=== PATIENT | male | born 1955 | race Caucasian/White ===

== ENCOUNTER 2017-07-10 01:55 | Inpatient (IN) | payer OTHER ==
--- NOTE | 2017-07-10 02:14 | ED PDOC ---
Arrival/HPI - General Chief Complaint: Medical Clearance Time Seen by Provider: 07/10/17 01:57 Historian: Patient - History of Present Illness Narrative History of Present Illness (Text): 07/10/17 02:00 A 62 year old male was brought in by EMS to the emergency department complaining of left sided weakness s/p seizure episode 4.5 hours prior to arrival to the emergency department. Patient reports 4.5 hours ago was the last time he was normal. Reports he was sitting at home and when he tried to get up, realized he was unable to walk because weakness of left leg. Denies any other complaints at this time. Time/Duration: 4-6 hours Symptom Onset: Sudden Symptom Course: Unchanged Activities at Onset: Light Context: Home Past Medical History - Provider Review Nursing Documentation Reviewed: Yes - Psychiatric Hx Substance Use: No Family/Social History - Physician Review Nursing Documentation Reviewed: Yes Family/Social History: No Known Family HX Smoking Status: Never Smoked Hx Alcohol Use: No Hx Substance Use: No Allergies/Home Meds Allergies/Adverse Reactions: Allergies No Known Allergies Allergy (Verified 07/10/17 02:00) Home Medications: Home Meds Medication Instructions Recorded Confirmed Metformin ER [Glucophage XR] 500 mg PO DAILY 07/10/17 07/10/17 Sildenafil [Revatio] 20 mg PO DAILY 07/10/17 07/10/17 Simvastatin [Zocor] 20 mg PO DAILY 07/10/17 07/10/17 Review of Systems - Physician Review All systems were reviewed & negative as marked: Yes - Review of Systems Respiratory: absent: SOB Musculoskeletal: absent: Back Pain Neurological: Seizure, Other (left sided weakness) Physical Exam Vital Signs Reviewed: Yes Vital Signs Temp Pulse Resp BP Pulse Ox 07/10/17 03:07 100 H 18 110/80 95 07/10/17 02:00 105 H 20 137/76 97 07/10/17 01:55 97.8 F Blood Pressure: Normal Pulse: Tachycardic Respiratory Rate: Normal Appearance: Positive for: Well-Appearing Pain Distress: None Mental Status: Positive for: Alert and Oriented X 3 Finger Stick Blood Glucose: 95 - Systems Exam Head: Present: Atraumatic, Normocephalic Pupils: Present: PERRL Extroacular Muscles: Present: EOMI Conjunctiva: Present: Normal Mouth: Present: Moist Mucous Membranes Neck: Present: Normal Range of Motion Respiratory/Chest: Present: Clear to Auscultation, Good Air Exchange. No: Respiratory Distress, Accessory Muscle Use Cardiovascular: Present: Regular Rate and Rhythm, Normal S1, S2. No: Murmurs Abdomen: Present: Normal Bowel Sounds. No: Tenderness, Distention, Peritoneal Signs Back: Present: Normal Inspection Upper Extremity: Present: Other (left sided 0/5 motor, 5/5 right side). No: Cyanosis, Edema Lower Extremity: Present: Other (left sided 0/5 motor; 5/5 right side). No: Edema Neurological: Present: GCS=15, CN II-XII Intact, Speech Normal, Other (twitching , tremors b/l) Skin: Present: Warm, Dry, Normal Color. No: Rashes Psychiatric: Present: Alert, Oriented x 3, Normal Concentration Medical Decision Making ED Course and Treatment: 07/10/17 02:00 Impression: A 62 year old male with seizure episode and left sided weakness. Plan: -- EKG -- chest xray -- CT head -- labs -- Ativan -- Reassess and disposition Progress Notes: 07/10/17 02:02 Code stroke called. 07/10/17 02:22 Patient had seizure prior to CAT scan. Ativan was given. CT Head Without Intravenous Contrast FINDINGS: LIMITATIONS: Mild streak/motion artifact. BRAIN: Large area of abnormal low density in the right occipital and parietal lobes, with an appearance suspicious for vasogenic edema, secondary to an underlying intracranial mass lesion. The lesion itself is possibly seen, image 33 of series 2, in the right occipital lobe, measuring about 1.6 cm. There is associated intracranial mass effect. There is shift of the midline to the left of 4 mm, as well as effacement of the right lateral ventricle. No other significant abnormality identified. Mild, diffuse each-related cortical atrophy and ventriculomegaly No acute hemorrhage seen within the brain. No acute extra- axial fluid collections visualized. VENTRICLES: No evidence of significant hydrocephalus. BONES/JOINTS: No acute fractures or other acute bony abnormality noted. SOFT TISSUES: No acute abnormality of the visualized soft tissues is seen. SINUSES: Visualized paranasal sinuses appear clear. MASTOID AIR CELLS: Mastoid air cells appear clear. NASOPHARYNX: Nasopharyngeal airway is in place. IMPRESSION: - Large area of edema in the right occipital and parietal lobes, suspicious for vasogenic edema secondary to a right occipital mass. There is associated intracranial mass effect, including 4 mm midline shift to the left. Recommend further evaluation with contrast- enhanced MRI of the brain. - See above for remaining findings. Dictated and Authenticated by: Kate Bowens MD 07/10/2017 2:35 AM Eastern Time ([place] & [place]) 07/10/17 02:49 EKG: Ordered, reviewed, and independently interpreted the EKG. Rate : 119 BPM Rhythm : sinus tachycardia Interpretation : QRS normal, flat T wave lead 3 avf Comparison : No previous EKG for comparison. 07/10/17 02:49 Chest xray: No acute process, interpreted by me. 07/10/17 03:[address] Cazares, who agrees with plan for patient to be admitted. 07/10/17 03:15 Patient has brain tumor on CAT scan. Patient not a candidate for tpa. - Lab Interpretations Lab Results: 07/10/17 02:00 07/10/17 02:00 Lab Results 07/10/17 02:20: Blood Type Pending, Antibody Screen Pending, BBK History Checked No verified bt 07/10/17 02:00: Urine Opiates Screen Negative, Urine Methadone Screen Negative, Ur Barbiturates Screen Negative, Ur Phencyclidine Scrn Negative, Ur Amphetamines Screen Negative, U Benzodiazepines Scrn Negative, U Oth Cocaine Metabols Negative, U Cannabinoids Screen Negative 07/10/17 02:00: Sodium 141, Potassium 3.7, Chloride 106, Carbon Dioxide 26, Anion Gap 13, BUN 11, Creatinine 1.1, Est GFR ( Amer) > 60, Est GFR (Non- Af Amer) > 60, Random Glucose 116 H, Calcium 9.2, Total Bilirubin 0.6, AST 41, ALT 41, Alkaline Phosphatase 87, Troponin I < 0.01, Total Protein 7.6, Albumin 4.4, Globulin 3.2, Albumin/Globulin Ratio 1.4, Triglycerides 186 H, Cholesterol 166, LDL Cholesterol Direct 107, HDL Cholesterol 45 07/10/17 02:00: PT 11.0, INR 1.01, APTT 28.5 07/10/17 02:00: WBC 9.6, RBC 4.99, Hgb 15.3, Hct 43.6, MCV 87.4, MCH 30.7, MCHC 35.1, RDW 13.7, Plt Count 234, MPV 10.2, Gran % 43.0 L, Lymph % (Auto) 46.8 H, Vernon % (Auto) 8.3 H, Eos % (Auto) 1.4 L, Baso % (Auto) 0.5, Gran # 4.14, Lymph # 4.5 H, Vernon # 0.8 H, Eos # 0.1, Baso # 0.05 I have reviewed the lab results: Yes - RAD Interpretation Radiology Orders: 07/10/17 02:00 HEAD W/O (CODE STROKE) [CT] Stat CHEST PORTABLE [RAD] Stat - EKG Interpretation Interpreted by ED Physician: Yes Type: 12 lead EKG - Medication Orders Current Medication Orders: Discontinued Medications Dexamethasone (Decadron Inj) 10 mg IVP STAT STA Stop: 07/10/17 03:08 Levetiracetam 1,000 mg/ Sodium (Chloride) 110 mls @ 440 mls/hr IV ONCE ONE Stop: 07/10/17 02:45 Last Admin: 07/10/17 02:57 Dose: 440 mls/hr eMAR Start Stop Document 07/10/17 02:57 IT (Rec: 07/10/17 02:57 IT [id number]) Intravenous Solution Start Date 07/10/17 Start Time 02:57 Lorazepam (Ativan) 1 mg IVP ONCE ONE PRN Reason: Protocol Stop: 07/10/17 02:02 Last Admin: 07/10/17 02:05 Dose: 1 mg IVP Administration Document 07/10/17 02:05 IT (Rec: 07/10/17 02:59 IT [id number]) Charges for Administration # of IVP Administrations 1 Lorazepam (Ativan) 1 mg IVP ONCE ONE PRN Reason: Protocol Stop: 07/10/17 02:40 Last Admin: 07/10/17 02:05 Dose: 1 mg IVP Administration Document 07/10/17 02:05 IT (Rec: 07/10/17 02:59 IT [id number]) Charges for Administration # of IVP Administrations 1 NIHSS Scale ([place]) Time Performed: 02:02 - How Severe is the Stoke Baseline Level of Consciousness: 1=Drowsy LOC to Questions: 0=Both comments correct LOC to commands: 0=Obeys both correctly Best Gaze: 0=Normal Visual: 0=No visual loss Facial: 0=Normal Motor Arm - Left: 4=No movement Motor Arm - Right: 0=No drift Motor Leg - Left: 4=No movement Motor Leg - Right: 0=No drift Limb Ataxia: 1=Present Upper or Lower Sensory: 0=Normal Best Language: 0=No aphasia Dysarthia: 0=Normal articulation Extinction & Inattention (Neglect): 0=Normal, no object Score: 10 Risk Level: Mod Stroke Risk rTPA Inclusion/Exclusion - Refusal of Treatment Patient Refused Treatment: No - Inclusion Criteria for Altepase Patient is 18 years or Older: Yes The Clinical Diagnosis of Ischemic Stroke That is Causing a Potentially Disabling Neurological Deficit: No Time of Onset is Well Established to be Less Than 270 Minute Before Treatment Would Begin: No Risk/Benefit Discussed With Patient/Family Member Present: No - Exclusion Criteria for Altepase Uncontrolled Hypertension at Time of Treatment (Systolic BP above 185 or Diastolic BP above 110 mmHg): No History of: Brain Tumor Active Internal Bleeding: No Known Bleeding Diathesis Including but Not Limited to: Platelets Below 100,000/ mm,PTT Above 40 sec After Heparin Use, Current Use of Oral Anitcoagulant With INR Greater Than 1.7 or PT Greater Than 15 secs: No Evidence of an Intracranial Hemorrhage: No Evidence of Major Acute Infarct With Signs Greater Than 1/3 MCA Territory: No Suspicion of Subarachnoid Hemorrhage on Pretreatment Evaluation Even if CT Head Negative For Hemorrhage: No - Warning to TPA With Conditions Following Conditions Weighed Against Anticipated Benefit: No - Scribe Statement The provider has reviewed the documentation as recorded by the Chao Sorto Provider Scribe Attestation: All medical record entries made by the Bhanuibshanelle were at my direction and personally dictated by me. I have reviewed the chart and agree that the record accurately reflects my personal performance of the history, physical exam, medical decision making, and the department course for this patient. I have also personally directed, reviewed, and agree with the discharge instructions and disposition. Disposition/Present on Arrival - Present on Arrival Any Indicators Present on Arrival: No History of DVT/PE: No History of Uncontrolled Diabetes: No Urinary Catheter: No History of Decub. Ulcer: No History Surgical Site Infection Following: None - Disposition Have Diagnosis and Disposition been Completed?: Yes Diagnosis: Mass, brain, Seizure Disposition: HOSPITALIZED Disposition Time: 03:15 Patient Plan: Admission, ICU Condition: CRITICAL
[2017-07-10 02:19] LABS: BASO # 0.05 K/mm3 (0.0-2.0); BASO % 0.5 % (0.0-3.0); EOS # 0.1 (0.0-0.7); EOS % 1.4 % (1.5-5.0); GRAN # 4.14 (1.4-6.5); HEMATOCRIT 43.6 % (42.0-52.0); LYMPH # 4.5 (1.2-3.4); LYMPH % 46.8 % (22.0-35.0); MEAN CELL VOLUME 87.4 fl (80.0-105.0); MEAN CORPUSCULAR HEMOGLOBIN 30.7 pg (25.0-35.0); MEAN CORPUSCULAR HGB CONC 35.1 g/dl (31.0-37.0); MEAN PLATELET VOLUME 10.2 fl (7.0-11.0); MONO # 0.8 (0.1-0.6); MONO % 8.3 % (1.0-6.0); RED CELL DISTRIBUTION WIDTH 13.7 % (11.5-14.5); WHITE BLOOD COUNT 9.6 10^3/ul (4.5-11.0)
[2017-07-10 02:24] LABS: INR 1.01 (0.93-1.08); PARTIAL THROMBOPLASTIN TIME 28.5 Seconds (25.1-36.5)
[2017-07-10 02:29] LABS: ALB/GLOB RATIO 1.4 (1.1-1.8); ALKALINE PHOSPHATASE 87 U/L (38-126); ALT/SGPT 41 U/L (7-56); AST/SGOT 41 U/L (17-59); BILIRUBIN,TOTAL 0.6 mg/dL (0.2-1.3); BLOOD UREA NITROGEN 11 mg/dL (7-21); CALCIUM 9.2 mg/dL (8.4-10.5); CARBON DIOXIDE 26 mmol/L (21-33); CHLORIDE 106 mmol/L (98-107); CHOLESTEROL 166 mg/dL (130-200); GFR AFRICAN-AMERICAN > 60; GLUCOSE,RANDOM 116 mg/dL (70-110); POTASSIUM 3.7 mmol/L (3.6-5.0); SODIUM 141 mmol/L (132-148); TOTAL PROTEIN 7.6 g/dL (5.8-8.3)
[2017-07-10] MEDS ORDERED: levETIRAcetam 1,000 MG in Sodium Chloride 0.9% 100 ML IV ONE (02:31)
--- NOTE | 2017-07-10 02:35 | CT ---
EXAM: CT Head Without Intravenous Contrast EXAM DATE/TIME: 07/10/2017 2:00 AM CLINICAL HISTORY: 62 years old, male; Signs and symptoms; Weakness, facial; Additional info: Code stroke TECHNIQUE: Axial computed tomography images of the head/brain without intravenous contrast. All CT scans at this facility use one or more dose reduction techniques, viz.: automated exposure control; ma/kV adjustment per patient size (including targeted exams where dose is matched to indication; i.e. head); or iterative reconstruction technique. COMPARISON: No relevant prior studies available. FINDINGS: LIMITATIONS: Mild streak/motion artifact. BRAIN: Large area of abnormal low density in the right occipital and parietal lobes, with an appearance suspicious for vasogenic edema, secondary to an underlying intracranial mass lesion. The lesion itself is possibly seen, image 33 of series 2, in the right occipital lobe, measuring about 1.6 cm. There is associated intracranial mass effect. There is shift of the midline to the left of 4 mm, as well as effacement of the right lateral ventricle. No other significant abnormality identified. Mild, diffuse each-related cortical atrophy and ventriculomegaly No acute hemorrhage seen within the brain. No acute extra-axial fluid collections visualized. VENTRICLES: No evidence of significant hydrocephalus. BONES/JOINTS: No acute fractures or other acute bony abnormality noted. SOFT TISSUES: No acute abnormality of the visualized soft tissues is seen. SINUSES: Visualized paranasal sinuses appear clear. MASTOID AIR CELLS: Mastoid air cells appear clear. NASOPHARYNX: Nasopharyngeal airway is in place. IMPRESSION: - Large area of edema in the right occipital and parietal lobes, suspicious for vasogenic edema secondary to a right occipital mass. There is associated intracranial mass effect, including 4 mm midline shift to the left. Recommend further evaluation with contrast-enhanced MRI of the brain. - See above for remaining findings.
[2017-07-10 02:44] LABS: TROPONIN I < 0.01 ng/mL
[2017-07-10 03:25] LABS: PH,URINE 5.5 (4.7-8.0); URINE BILIRUBIN NEGATIVE (NEGATIVE); URINE BLOOD TRACE-INTACT (NEGATIVE); URINE GLUCOSE (UA) NEGATIVE (NEGATIVE); URINE KETONE NEGATIVE (NEGATIVE); URINE LEUKOCYTE ESTERASE NEGATIVE Leu/uL (NEGATIVE); URINE PROTEIN 30 mg/dL (<30 mg/dL); URINE UROBILINOGEN 0.2 E.U./dL (<1 E.U./dL)
[2017-07-10 03:54] LABS: URINE APPEARANCE CLEAR (CLEAR); URINE COLOR YELLOW (YELLOW)
[2017-07-10 04:19] LABS: URINE EPITHELIAL CELLS 0 - 2 /hpf (0-5); URINE RBC 0 - 2 /hpf (0-2); URINE WBC 0 - 2 /hpf (0-6)
[2017-07-10] MEDS ORDERED: Sodium Chloride 0.9% 1,000 ML IV SCH (04:30)
--- NOTE | 2017-07-10 04:45 | CP.PCM.HP ---
<Tiffany Park - Last Filed: 07/10/17 04:27> History of Present Illness - History of Present Illness History of Present Illness: Tiffany Park DO PGY1 - Internal Medicine H&P and ICU Consult Note 62 yo M with PMH of high cholesterol presented to the ED brought by EMS, complaining of left sided weakness. During my encounter, patient was lethargic after receiving 2mg Ativan, so history was obtained from ER staff and son who was at bedside. Per ER staff, patient was at home, at 930PM tried to get out of his chair to go to the bathroom, and noticed left sided weakness and difficulty walking. He had a guest in his home at the time who called EMS to bring him to the hospital. Per the son, patient was normal without any complaints earlier this week, and generally leads a healthy lifestyle, exercising regularly and eating healthily. In the ER, patient was lucid, AAOx3, with left sided weakness and right sided twitching movements. Code stroke was called and patient was taken for CT head, and had a generalized tonic clonic seizure en route, which abated with 2mg IV ativan. ROS: Unobtainable due to patient's current mental status PMH: High cholesterol, erectile dysfunction PSH: None Soc: Denies tobacco, alcohol, or illicits Home meds: Simvastatin, Sildenafil, Metformin 500mg PO daily All: NKDA Present on Admission - Present on Admission Any Indicators Present on Admission: No Past Patient History - Past Social History Smoking Status: Never Smoked - PSYCHIATRIC Hx Substance Use: No - SURGICAL HISTORY Hx Surgeries: No Meds Allergies/Adverse Reactions: Allergies Allergy/AdvReac Type Severity Reaction Status Date / Time No Known Allergies Allergy Verified 07/10/17 02:00 Physical Exam - Constitutional Appears: Non-toxic, No Acute Distress, Confused - Head Exam Head Exam: ATRAUMATIC, NORMOCEPHALIC - Eye Exam Eye Exam: Normal appearance, PERRL Additional comments: Vertical gaze palsy. Right sided preferential gaze. - ENT Exam ENT Exam: Mucous Membranes Moist - Neck Exam Neck exam: Positive for: Normal Inspection - Respiratory Exam Respiratory Exam: Clear to Auscultation Bilateral, NORMAL BREATHING PATTERN - Cardiovascular Exam Cardiovascular Exam: Tachycardia, REGULAR RHYTHM, +S1, +S2. absent: JVD, Systolic Murmur Additional comments: No carotid bruits ascultated - GI/Abdominal Exam GI & Abdominal Exam: Normal Bowel Sounds, Soft. absent: Firm, Guarding, Rigid - Extremities Exam Extremities exam: Positive for: normal inspection. Negative for: pedal edema - Neurological Exam Additional comments: On initial presentation, patient was reportedly AAOx3 Currently, patient is lethargic, but easily arousable, oriented to person and place, and somewhat to situation, responding to verbal stimuli, obeying commands , opening eyes to verbal stimuli (GCS 13) PERRL, vertical gaze palsy, forehead sparing left sided facial droop, no tongue/ palate deviation or fasciculation 5/5 strength in RUE and RLE with upgoing plantar on the right 0/5 strength in LUE and LLE with equivocal plantar on the left; on repeat exam one hour later, patient was able to raise left arm and leg on command Sensation intact on the right, but totally diminished on the right - Psychiatric Exam Additional comments: Unable to assess - Skin Skin Exam: Dry, Intact, Normal Color Results - Vital Signs Recent Vital Signs: Last Vital Signs Temp 97.8 F 07/10/17 01:55 Pulse 100 H 07/10/17 03:07 Resp 18 07/10/17 03:07 BP 110/80 07/10/17 03:07 Pulse Ox 95 07/10/17 03:07 - Labs Result Diagrams: 07/10/17 02:00 07/10/17 02:00 Assessment & Plan - Assessment and Plan (Free Text) Assessment: 62 yo M with PMH of high cholesterol presents by EMS for sudden onset left sided weakness Plan Neuro: - Patient with profound left sided weakness and forehead sparing left sided facial droop - CT head significant for large area of edema in right parietal and occipital lobe 2/2 vasogenic edema 2/2 right occipital mass with mass effect and 4mm midline shift to the left - Patient received Decadron 10mg IV, Keppra 1000mg IV, and Ativan 2mg IV in the ER - Ordered MRI brain and MRA neck to r/o thromboembolic event and further delineate brain mass - Continue Decadron 4mg IV Q6 - Continue Keppra 500mg IV Q12 - Continue Ativan 2mg Q2H PRN for seizures - Start Zofran 4mg IV Q6H for nausea - Neurochecks Q2 and maintain seizure and fall precautions - Maintain NPO - Ordered swallow eval and treat - Maintain HOB >30 - Consult neurology and neurosurgery, appreciate recs Cardio: - Patient was tachycardic in the ER, remains borderline tachycardic - Start IVF NS@100cc/hr - Vital signs otherwise stable; continue to monitor Pulm: - Lungs CTA on exam - Saturating well on RA - Maintain SaO2 >90% GI: - Maintain NPO in setting of facial palsy - Ordered swallow eval and treat - Protonix for GI Ppx - Zofran for nausea Renal: - Monitor and replete lytes as needed - Maintain euvolemia Endo: - Patient takes Metformin 500mg PO daily, though son does not endorse history of diabetes - Maintain euglycemia ID: - Patient is afebrile, no leukocytosis - Maintain normothermia Hem/Onc: - H/H stable - No signs of active bleeding - Continue to monitor GI/DVT Ppx - Protonix and SCDs Patient seen, discussed, and reviewed with attending <Ronald Cazares - Last Filed: 07/10/17 06:12> Results - Vital Signs Recent Vital Signs: Last Vital Signs Temp 97.8 F 07/10/17 01:55 Pulse 87 07/10/17 04:50 Resp 20 07/10/17 04:40 BP 136/83 07/10/17 04:20 Pulse Ox 97 07/10/17 04:50 - Labs Result Diagrams: 07/10/17 02:00 07/10/17 02:00 Attending/Attestation - Attestation I have personally seen and examined this patient.: Yes I have fully participated in the care of the patient.: Yes I have reviewed all pertinent clinical information: Yes Notes (Text): 07/10/17 06:09 I agree with the above mentioned note and exam by the resident with the addition /exception of the followin62 y/o male with dyslipidemia, ?prediabetes was brought to the ED for flaccid left sided weakness today. Patient was called for a code stroke due to the acuity of the symptoms and while at CT Scan had an episode of generalized tonic clonic shaking. CT Head showing vasogenic right parietal/occipital edema, likely secondary to a mass which would also explain the patient having a new onset seizure. Patient also has a mild midline shift of 4mm; able to maintain and protect his airway adequately. Will obtain MRI of the head to further clarify the edema/mass. NeuroSx consulted without any new recommendations at this time, will follow up with neurology as well. Decadron initiated for vasogenic edema secondary to the brain mass. Case discussed with Dr. Lugo (ED Physician) at length labs and images reviewed total time of care: 45 minutes
[2017-07-10] MEDS: Dexamethasone 4 mg/1 ml IVP SCH ×4 (04:52→22:32)
[2017-07-10 07:01] VITALS: BMI 31.7
[2017-07-10] MEDS ORDERED: Sodium Chloride 3% 500 ML IV SCH (07:15)
--- NOTE | 2017-07-10 08:19 | RAD ---
HISTORY: weakness COMPARISON: No prior. FINDINGS: LUNGS: No active pulmonary disease. Shallow lung volumes noted PLEURA: No significant pleural effusion identified, no pneumothorax apparent. CARDIOVASCULAR: Normal. OSSEOUS STRUCTURES: Acromioclavicular sclerotic and hypertrophic arthrosis VISUALIZED UPPER ABDOMEN: Normal. OTHER FINDINGS: None. IMPRESSION: No active cardiopulmonary disease. Bilateral acromioclavicular arthrosis
[2017-07-10] MEDS: levETIRAcetam 500mg IVPB 500 MG/100 ML BAG IVPB SCH ×2 (09:38→22:29)
--- NOTE | 2017-07-10 10:13 | CP.PCM.CON ---
<Adan Hernandez - Last Filed: 07/10/17 10:07> History of Present Illness - History of Present Illness History of Present Illness: Critical care consult note - Carlin Hernandez PGY2 HPI: Patient is a 62 year-old male with past medical history of dyslipidemia that presented c/o sudden onset left-sided weakness. At approximately 9:30pm last night, patient was at home when he noticed the weakness and had difficulty walking. A friend called EMS and he was brought to [facility] where a code stroke was called. On the way to CT, the patient reportedly had a tonic- clonic seizure for which he was given 2mg of Ativan. CT Head revealed large vasogenic edema in the right parietal and occipital lobes with 4mm of midline shift to the left secondary to a right occipital lobe mass. He was subsequently given 10mg of decadron and 1g of keppra. Neurosurgery was consulted in the ED and no surgical intervention was recommended at that time. He was subsequently admitted to the ICU for further medical management. He denied numbness, tingling , chest pain, palpitations, SOB, abdominal pain, nausea, vomiting, fever, chills , cough. 12point ROS as per HPI above otherwise negative PMHx: dyslipidemia, erectile dysfunction, pre-diabetes PSHx: Denies Allergies: NKDA Soc: Denies tobacco, alcohol, or illicits Home medications include: Simvastatin, Sildenafil, Metformin 500mg PO daily Past Patient History - Past Social History Smoking Status: Never Smoked - MUSCULOSKELETAL/RHEUMATOLOGICAL Hx Falls: No - PSYCHIATRIC Hx Substance Use: No - SURGICAL HISTORY Hx Surgeries: No Meds Allergies/Adverse Reactions: Allergies Allergy/AdvReac Type Severity Reaction Status Date / Time No Known Allergies Allergy Verified 07/10/17 11:44 - Medications Medications: Current Medications Dexamethasone (Decadron Inj) 4 mg IVP Q6H [facility] Last Admin: 07/10/17 04:52 Dose: Not Given Heparin Sodium (Porcine) (Heparin) 5,000 units SC Q12 [facility] PRN Reason: Protocol Levetiracetam (Keppra 500mg Ivpb) 500 mg in 100 mls @ 460 mls/hr IVPB Q12 [facility] Last Admin: 07/10/17 09:38 Dose: 460 mls/hr Sodium Chloride (Hypertonic Saline 3%) 500 mls @ 20 mls/hr IV .Q24H [facility] Acetaminophen (Ofirmev) 1,000 mg in 100 mls @ 400 mls/hr IVPB Q6H PRN PRN Reason: Headache Stop: 07/12/17 07:31 Last Admin: 07/10/17 07:48 Dose: 400 mls/hr Insulin Human Regular (Humulin R Low) 0 units SC ACHS [facility] PRN Reason: Protocol Lorazepam (Ativan) 2 mg IVP Q2H PRN; Protocol PRN Reason: Seizure Ondansetron HCl (Zofran Inj) 4 mg IVP Q6H PRN PRN Reason: Nausea/Vomiting Pantoprazole Sodium (Protonix Inj) 40 mg IVP DAILY [facility] Last Admin: 07/10/17 09:37 Dose: 40 mg Physical Exam - Constitutional Appears: Non-toxic, No Acute Distress - Head Exam Head Exam: ATRAUMATIC, NORMAL INSPECTION, NORMOCEPHALIC - Eye Exam Eye Exam: EOMI, PERRL. absent: Conjunctival injection, Nystagmus, Periorbital swelling, Scleral icterus - ENT Exam ENT Exam: Mucous Membranes Moist - Neck Exam Neck exam: Positive for: Normal Inspection. Negative for: Lymphadenopathy, Tenderness, Thyromegaly - Respiratory Exam Respiratory Exam: Clear to Auscultation Bilateral. absent: Accessory Muscle Use , Rales, Rhonchi, Wheezes - Cardiovascular Exam Cardiovascular Exam: RRR, +S1, +S2. absent: Clicks, Gallop, JVD, Rubs - GI/Abdominal Exam GI & Abdominal Exam: Normal Bowel Sounds, Soft. absent: Distended, Guarding, Rebound, Rigid, Tenderness - Extremities Exam Extremities exam: Positive for: normal inspection. Negative for: calf tenderness, pedal edema - Neurological Exam Neurological exam: Alert, CN II-XII Intact, Oriented x3 Additional comments: awake, alert, oriented x3; responding to questions appropriately EOMI PERRL CN2-12 grossly intact sensory exam intact moves all extremities spontaneously with notable weakness in the left upper extremity visual impairment in the left eye gait deferred - Psychiatric Exam Psychiatric exam: Normal Affect, Normal Mood - Skin Skin Exam: Dry, Intact, Normal Color, Warm Results - Vital Signs Recent Vital Signs: Last Vital Signs Temp 98.3 F 07/10/17 04:56 Pulse 85 07/10/17 07:00 Resp 23 07/10/17 07:00 BP 117/62 07/10/17 06:32 Pulse Ox 98 07/10/17 06:50 - Labs Result Diagrams: 07/10/17 02:00 07/10/17 02:00 Labs: Laboratory Results - last 24 hr 07/10/17 07:30 TSH 3rd Generation 5.21 H Assessment & Plan - Assessment and Plan (Free Text) Plan: 62yo male with history of dyslipidemia presents with sudden onset left-sided weakness due to large vasogenic edema in the right occipital and parietal lobes secondary to a right occipital mass. Neuro: -CT reviewed; revealed large area of vasogenic edema in right parietal and occipital lobe 2/2 right occipital mass with 4mm of midline shift to the left -Patient received Decadron 10mg IV, Keppra 1000mg IV, and Ativan 2mg IV in the ER -MRI Brain and MRA Head/Neck is pending to further delineate brain mass -CT Chest/Abdomen/Pelvis with IV contrast has been ordered to evaluate for possible primary cancer -Continue Decadron 4mg IV Q6 -Continue Keppra 500mg IV Q12 -Continue hypertonic saline @ 20cc/hr -BMP q4h for monitoring hypertonic saline -Serum Osmolality -Continue Ativan 2mg Q2H PRN for seizures -Zofran 4mg IV Q6H PRN for nausea/vomiting -Neurochecks Q2h -Seizure and Fall precautions -Maintain HOB >30 -Speech/swallow evaluation pending; NPO at this time -Neurology consulted - Dr. Marroquin -Neurosurgery consulted - Dr. Richards Cardio: -Hemodynamic monitoring with goal MAP > 65 Pulm: -Maintain SaO2 >90%; presently saturating > 95% on room air GI: -Protonix for GI prophylaxis -NPO at the present time pending speech/swallow evaluation Renal: -Monitor and correct electrolyte abnormalities as indicated -Maintain euvolemia Endo: -Maintain euglycemia with blood glucose between 140-180 ID: -Afebrile, no leukocytosis -Maintain normothermia Heme: -No overt signs of bleeding; H/H stable -Heparin SC for DVT prophylaxis Patient seen and case discussed/reviewed with attending, Dr. Frankel <Felipe Frankel - Last Filed: 07/10/17 18:22> Meds - Medications Medications: Current Medications Dexamethasone (Decadron Inj) 4 mg IVP Q6H [facility] Last Admin: 07/10/17 17:12 Dose: 4 mg Heparin Sodium (Porcine) (Heparin) 5,000 units SC Q12 [facility] PRN Reason: Protocol Last Admin: 07/10/17 10:10 Dose: 5,000 units Levetiracetam (Keppra 500mg Ivpb) 500 mg in 100 mls @ 460 mls/hr IVPB Q12 [facility] Last Admin: 07/10/17 09:38 Dose: 460 mls/hr Sodium Chloride (Hypertonic Saline 3%) 500 mls @ 20 mls/hr IV .Q24H [facility] Last Admin: 07/10/17 15:14 Dose: 20 mls/hr Acetaminophen (Ofirmev) 1,000 mg in 100 mls @ 400 mls/hr IVPB Q6H PRN PRN Reason: Headache Stop: 07/12/17 07:31 Last Admin: 07/10/17 07:48 Dose: 400 mls/hr Insulin Human Regular (Humulin R Low) 0 units SC ACHS [facility] PRN Reason: Protocol Last Admin: 07/10/17 17:12 Dose: 1 units Lorazepam (Ativan) 2 mg IVP Q2H PRN; Protocol PRN Reason: Seizure Ondansetron HCl (Zofran Inj) 4 mg IVP Q6H PRN PRN Reason: Nausea/Vomiting Pantoprazole Sodium (Protonix Inj) 40 mg IVP DAILY [facility] Last Admin: 07/10/17 09:37 Dose: 40 mg Results - Vital Signs Recent Vital Signs: Last Vital Signs Temp 98.5 F 07/10/17 16:00 Pulse 70 07/10/17 16:50 Resp 21 07/10/17 16:50 BP 126/50 L 07/10/17 16:45 Pulse Ox 94 L 07/10/17 16:50 - Labs Result Diagrams: 07/10/17 02:00 07/10/17 02:00 Labs: Laboratory Results - last 24 hr 07/10/17 07/10/17 07/10/17 07:30 09:00 09:58 POC Glucose (mg/dL) 210 H Serum Osmolality 287 TSH 3rd Generation 5.21 H 07/10/17 07/10/17 11:52 16:32 POC Glucose (mg/dL) 173 H 152 H Serum Osmolality TSH 3rd Generation Attending/Attestation - Attestation I have personally seen and examined this patient.: Yes I have fully participated in the care of the patient.: Yes I have reviewed all pertinent clinical information: Yes Notes (Text): This is 62 yo male who presented with seizures, loss vision on a left eye and decrease motor strength on a left upper extremity. Subsequent workup revealed severe vasogenic edema with midline shift 4 mm and changes on MRI highly suspicious for glioblastoma based on my conversation with neurosurgery service. decadrone, hypertonic saline are started, bmp q4 hrs, maintaining euvolemia, euglycemia, normothermia and 02sat >90%. as per my conversation with Dr. Richards patient needs navigational surgery and Dr. Marroquin will attempt to transfer patient to tertiary center for consideration of thereof. Meanwhile, patient passed bedside swallow eval, hemodynamically and respiratory relatively stable. Ok to downgrade to stroke floor ccm time 40 min
[2017-07-10] MEDS ORDERED: Iohexol 350 MG/100 ML VIAL ONE (10:56)
[2017-07-10] MEDS ORDERED: Gadodiamide 287 MG/ML VIAL (15ML) IV ONE (11:00)
[2017-07-10] MEDS: Insulin Reg-LOW-Coverage SC SCH ×3 (12:00→22:32)
--- NOTE | 2017-07-10 13:14 | CT ---
PROCEDURE: CT Chest, Abdomen and Pelvis with intravenous contrast HISTORY: brain mass, ruling out other primary location COMPARISON: None. TECHNIQUE: IV dose administered: 100 cc of Omni 350 Radiation dose: Total exam DLP = 956 mGy-cm. This CT exam was performed using one or more of the following dose reduction techniques: Automated exposure control, adjustment of the mA and/or kV according to patient size, and/or use of iterative reconstruction technique. FINDINGS: CT CHEST WITH CONTRAST: LUNGS: There is linear scarring and atelectasis at the right lung base. The lungs are otherwise clear MEDIASTINUM: Unremarkable. Normal caliber aorta and pulmonary arterial trunk. No aortic dissection. Normal size heart. LYMPH NODES: Unremarkable. PLEURA: Unremarkable. No pneumothorax. No pleural fluid. BONES: Unremarkable. OTHER FINDINGS: None. CT ABDOMEN AND PELVIS: LIVER: Unremarkable. No gross lesion or ductal dilatation. GALLBLADDER AND BILE DUCTS: Unremarkable. PANCREAS: Unremarkable. No gross lesion or ductal dilatation. SPLEEN: Unremarkable. ADRENALS: Unremarkable. No mass. KIDNEYS AND URETERS: Unremarkable. No hydronephrosis. No solid mass. VASCULATURE: Unremarkable. No aortic aneurysm. BOWEL: Unremarkable. No obstruction. No gross mural thickening. There is a moderate degree of constipation APPENDIX: Normal appendix. PERITONEUM: Unremarkable. No free fluid. No free air. LYMPH NODES: Unremarkable. No enlarged lymph nodes. BLADDER: Unremarkable. REPRODUCTIVE: Unremarkable. BONES: No acute fracture. OTHER FINDINGS: None. IMPRESSION: No evidence of malignancy
--- NOTE | 2017-07-10 13:22 | MRI ---
PROCEDURE: MRI BRAIN WITH AND WITHOUT CONTRAST HISTORY: evaluate vasogenic edema for a mass COMPARISON: None. TECHNIQUE: Multiplanar, multisequence MR images of the brain were obtained with and without intravenous contrast enhancement. FINDINGS: HEMORRHAGE: None DWI: No evidence of an acute or early subacute infarction. BRAIN PARENCHYMA: There is a complex heterogeneous enhancing mass in the right parietal lobe measuring 2.7 cm wide by 2.7 cm AP and 3.4 cm in height. There is a large amount of surrounding vasogenic edema. Small satellite lesions are seen superior to the primary mass. These can be seen on coronal image 21 series 12. The edema extends across the splenium of the corpus callosum. Nonenhancing tumor infiltration cannot be excluded. The findings are most consistent with glioblastoma. ENHANCEMENT: As above VENTRICLES: Unremarkable. No hydrocephalus. CRANIUM: Unremarkable. ORBITS: Grossly unremarkable. PARANASAL SINUSES/MASTOIDS: Clear VASCULAR SYSTEM: Skull base flow voids intact. OTHER FINDINGS: None . IMPRESSION: Heterogeneous right parietal mass with extensive surrounding vasogenic edema. Findings are most consistent with a glioblastoma
--- NOTE | 2017-07-10 13:24 | MRI ---
PROCEDURE: Magnetic Resonance Angiography Brain HISTORY: brain mass, left sided weakness COMPARISON: None available. TECHNIQUE: 3D time of flight MR angiography of the intracranial arteries was performed. Rotating maximum intensity projection images were generated. The patient was unable to hold still. There is motion artifact on the study FINDINGS: INTERNAL CAROTID ARTERIES: Unremarkable. The skull base, petrous, cavernous and supraclinoid segments are bilaterally widely patient. ANTERIOR CEREBRAL ARTERIES: Unremarkable. A1 and A2 segments are widely patent. Smaller distal branches unremarkable, as visualized. MIDDLE CEREBRAL ARTERIES: Unremarkable. M1 and M2 segments are widely patent. Perisylvian branches grossly symmetric. POSTERIOR CIRCULATION: Basilar Artery: Unremarkable. Distal Vertebral Arteries: Unremarkable. Posterior Cerebral Arteries: Unremarkable. Posterior Inferior Cerebellar Arteries: Unremarkable. ANEURYSM/ VASCULAR MALFORMATIONS: None. OTHER FINDINGS: None. IMPRESSION: Study limited by motion artifact. No occlusion of the large vessels
--- NOTE | 2017-07-10 13:26 | MRI ---
PROCEDURE: MR Angiography of the neck without contrast HISTORY: Left sided weakness; r/o carotid thrombus COMPARISON: None available. TECHNIQUE: 3D [id number]-eb-rntlyb angiography of the neck was performed. Rotating maximum intensity projection images of the cervical carotid and vertebral arteries were generated. The origins of the common carotid arteries were not visualized, which is a limitation inherent to the non-contrast time of flight technique. FINDINGS: RIGHT CAROTID ARTERIES: Common Carotid Artery: Normal. Carotid Bifurcation: Normal. Internal Carotid Artery:Normal. External Carotid Artery (proximal branches): Normal. LEFT CAROTID ARTERIES: Common Carotid Artery: Normal. Carotid Bifurcation: Normal. Internal Carotid Artery:Normal. External Carotid Artery (proximal branches): Normal. VERTEBRAL ARTERIES: Right Vertebral Artery: Normal. Left Vertebral Artery: Normal. OTHER FINDINGS: None. IMPRESSION: Normal MR Angiography of the neck.
--- NOTE | 2017-07-10 14:02 | CP.PCM.PN ---
Subjective - Date & Time of Evaluation Date of Evaluation: 07/10/17 Time of Evaluation: 14:00 - Subjective Subjective: reviewed MRI this is consistent with glioma It is deep right parietal and would require neuro-navigation for excision This is unavailable at This facility. Cannot do surgery without significant additional risk without this equiptment Suggest referring this patient to facility that has neuro-navigation Objective - Vital Signs/Intake and Output Vital Signs (last 24 hours): Temp Pulse Resp BP Pulse Ox 98.3 F 79 16 108/48 L 98 07/10/17 04:56 07/10/17 13:19 07/10/17 13:18 07/10/17 13:15 07/10/17 06:50 Intake and Output: 07/10/17 07/10/17 06:59 18:59 Intake Total 300 Output Total 350 Balance -50 - Medications Medications: Current Medications Dexamethasone (Decadron Inj) 4 mg IVP Q6H [facility] Last Admin: 07/10/17 10:05 Dose: 4 mg Heparin Sodium (Porcine) (Heparin) 5,000 units SC Q12 [facility] PRN Reason: Protocol Last Admin: 07/10/17 10:10 Dose: 5,000 units Levetiracetam (Keppra 500mg Ivpb) 500 mg in 100 mls @ 460 mls/hr IVPB Q12 [facility] Last Admin: 07/10/17 09:38 Dose: 460 mls/hr Sodium Chloride (Hypertonic Saline 3%) 500 mls @ 20 mls/hr IV .Q24H [facility] Acetaminophen (Ofirmev) 1,000 mg in 100 mls @ 400 mls/hr IVPB Q6H PRN PRN Reason: Headache Stop: 07/12/17 07:31 Last Admin: 07/10/17 07:48 Dose: 400 mls/hr Insulin Human Regular (Humulin R Low) 0 units SC ACHS [facility] PRN Reason: Protocol Last Admin: 07/10/17 12:00 Dose: Not Given Lorazepam (Ativan) 2 mg IVP Q2H PRN; Protocol PRN Reason: Seizure Ondansetron HCl (Zofran Inj) 4 mg IVP Q6H PRN PRN Reason: Nausea/Vomiting Pantoprazole Sodium (Protonix Inj) 40 mg IVP DAILY [facility] Last Admin: 07/10/17 09:37 Dose: 40 mg - Labs Labs: PT 11.0 SECONDS (9.4-12.5) 07/10/17 02:00 INR 1.01 (0.93-1.08) 07/10/17 02:00 APTT 28.5 Seconds (25.1-36.5) 07/10/17 02:00
--- NOTE | 2017-07-10 16:36 | CP.PCM.CON ---
History of Present Illness - History of Present Illness History of Present Illness: Mr. Mcconnell is a 62-year-old man with a past medical history of dyslipidemia that presented c/o sudden onset left-sided weakness. At approximately 9:30pm last night, patient was at home when he noticed the weakness and had difficulty walking. A friend called EMS and he was brought to [facility] where a code stroke was called. On the way to CT, the patient reportedly had a tonic- clonic seizure for which he was given 2mg of Ativan. CT scan and subsequent MRI confirmed the presence of a large right occipital/parietal lobe mass with vasogenic edema and midline shift, crossing the midline, consistent with the appearance of a glioblastoma. The patient was started on Keppra and dexamethasone. Currently, he states he has improvement in the weakness and denied headache, nausea, vomiting or abnormal shaking. Review of Systems - Review of Systems All systems: reviewed and no additional remarkable complaints except Past Patient History - Past Social History Smoking Status: Never Smoked - MUSCULOSKELETAL/RHEUMATOLOGICAL Hx Falls: No - PSYCHIATRIC Hx Substance Use: No - SURGICAL HISTORY Hx Surgeries: No Meds Allergies/Adverse Reactions: Allergies Allergy/AdvReac Type Severity Reaction Status Date / Time No Known Allergies Allergy Verified 07/10/17 11:44 - Medications Medications: Current Medications Dexamethasone (Decadron Inj) 4 mg IVP Q6H [facility] Last Admin: 07/10/17 10:05 Dose: 4 mg Heparin Sodium (Porcine) (Heparin) 5,000 units SC Q12 [facility] PRN Reason: Protocol Last Admin: 07/10/17 10:10 Dose: 5,000 units Levetiracetam (Keppra 500mg Ivpb) 500 mg in 100 mls @ 460 mls/hr IVPB Q12 [facility] Last Admin: 07/10/17 09:38 Dose: 460 mls/hr Sodium Chloride (Hypertonic Saline 3%) 500 mls @ 20 mls/hr IV .Q24H [facility] Last Admin: 07/10/17 15:14 Dose: 20 mls/hr Acetaminophen (Ofirmev) 1,000 mg in 100 mls @ 400 mls/hr IVPB Q6H PRN PRN Reason: Headache Stop: 07/12/17 07:31 Last Admin: 07/10/17 07:48 Dose: 400 mls/hr Insulin Human Regular (Humulin R Low) 0 units SC ACHS [facility] PRN Reason: Protocol Last Admin: 07/10/17 12:00 Dose: Not Given Lorazepam (Ativan) 2 mg IVP Q2H PRN; Protocol PRN Reason: Seizure Ondansetron HCl (Zofran Inj) 4 mg IVP Q6H PRN PRN Reason: Nausea/Vomiting Pantoprazole Sodium (Protonix Inj) 40 mg IVP DAILY [facility] Last Admin: 07/10/17 09:37 Dose: 40 mg Physical Exam - Constitutional Appears: Well - Head Exam Head Exam: ATRAUMATIC, NORMAL INSPECTION, NORMOCEPHALIC - Eye Exam Eye Exam: EOMI, Normal appearance, PERRL - Neck Exam Neck exam: Positive for: Normal Inspection - Respiratory Exam Respiratory Exam: Clear to Auscultation Bilateral, NORMAL BREATHING PATTERN - Cardiovascular Exam Cardiovascular Exam: REGULAR RHYTHM - GI/Abdominal Exam GI & Abdominal Exam: Normal Bowel Sounds, Soft. absent: Tenderness - Rectal Exam Rectal Exam: Deferred - Extremities Exam Extremities exam: Positive for: normal inspection - Back Exam Back exam: NORMAL INSPECTION - Neurological Exam Neurological exam: Abnormal Gait, CN II-XII Intact, Oriented x3 Additional comments: Left side reflexes are brisk in upper and lower extremities with upgoing plantar response. Strength on the left side is 4/5 as compared to the right side, which was preserved. - Psychiatric Exam Psychiatric exam: Anxious - Skin Skin Exam: Dry, Intact, Normal Color, Warm Results - Vital Signs Recent Vital Signs: Last Vital Signs Temp 98.5 F 07/10/17 16:00 Pulse 79 07/10/17 13:19 Resp 16 07/10/17 13:18 BP 108/48 L 07/10/17 13:15 Pulse Ox 98 07/10/17 06:50 - Labs Result Diagrams: 07/10/17 02:00 07/10/17 02:00 Labs: Laboratory Results - last 24 hr 07/10/17 07/10/17 07:30 09:58 POC Glucose (mg/dL) 210 H TSH 3rd Generation 5.21 H Assessment & Plan (1) Mass, brain Assessment and Plan: Based on the MRI and history, the patient likely has a large glioblastoma. Biopsy will be needed. The patient will need to be transferred to a tertiary center, or follow up with neurosurgery as an outpatient for treatment options. Continue dexamethasone at current dose. Status: Acute (2) Seizure Assessment and Plan: Continue Keppra at 500 mg PO BID. Status: Acute Priority: High
[2017-07-10 20:53] LABS: CALCIUM 9.6 mg/dL (8.4-10.5); CHLORIDE 107 mmol/L (98-107); GLUCOSE,RANDOM 153 mg/dL (70-110); POTASSIUM 3.8 mmol/L (3.6-5.0); SODIUM 140 mmol/L (132-148)
[2017-07-10 20:57] LABS: BLOOD UREA NITROGEN 12 mg/dL (7-21); CARBON DIOXIDE 24 mmol/L (21-33); GFR AFRICAN-AMERICAN > 60
--- NOTE | 2017-07-10 23:44 | CARD ---
APPROVED REPORT EKG Measurement Heart [id number] <Conclusion> Sinus tachycardia Otherwise normal ECG
[2017-07-11] MEDS: Dexamethasone 4 mg/1 ml IVP SCH ×4 (06:12→22:35)
[2017-07-11 06:52] LABS: GRAN # 14.55 (1.4-6.5); GRAN % 88.7 % (50.0-68.0); HEMATOCRIT 39.6 % (42.0-52.0); LYMPH # 1.3 (1.2-3.4); LYMPH % 8.1 % (22.0-35.0); MEAN CELL VOLUME 86.8 fl (80.0-105.0); MEAN CORPUSCULAR HEMOGLOBIN 29.6 pg (25.0-35.0); MEAN CORPUSCULAR HGB CONC 34.1 g/dl (31.0-37.0); MEAN PLATELET VOLUME 10.4 fl (7.0-11.0); MONO # 0.5 (0.1-0.6); MONO % 3.2 % (1.0-6.0); WHITE BLOOD COUNT 16.4 10^3/ul (4.5-11.0)
[2017-07-11] MEDS: Insulin Reg-LOW-Coverage SC SCH ×5 (07:35→22:51)
[2017-07-11 07:55] LABS: ALB/GLOB RATIO 1.3 (1.1-1.8); ALKALINE PHOSPHATASE 51 U/L (38-126); ALT/SGPT 36 U/L (7-56); AST/SGOT 36 U/L (17-59); BILIRUBIN,TOTAL 0.7 mg/dL (0.2-1.3); BLOOD UREA NITROGEN 15 mg/dL (7-21); CARBON DIOXIDE 24 mmol/L (21-33); CHLORIDE 108 mmol/L (98-107); GFR AFRICAN-AMERICAN > 60; GLUCOSE,RANDOM 165 mg/dL (70-110); MAGNESIUM 1.9 mg/dL (1.7-2.2); PHOSPHOROUS 3.1 mg/dL (2.5-4.5); POTASSIUM 3.8 mmol/L (3.6-5.0); SODIUM 140 mmol/L (132-148); TOTAL PROTEIN 6.7 g/dL (5.8-8.3)
--- NOTE | 2017-07-11 08:26 | CP.PCM.PN ---
Subjective - Date & Time of Evaluation Date of Evaluation: 07/11/17 Time of Evaluation: 08:22 - Subjective Subjective: Mr. Mcconnell was seen and examined at the bedside. He is alert, oriented in all spheres. He denies any headache, blurred vision, loss of vision, weakness, dizziness, nausea, vomiting, or any seizure like movement. The patient remains on telesitter for patient safety. Patient is on seizure precautions.There was no untoward events overnight. Objective - Vital Signs/Intake and Output Vital Signs (last 24 hours): Temp Pulse Resp BP Pulse Ox 98.2 F 64 20 112/63 97 07/11/17 00:00 07/11/17 00:00 07/11/17 00:00 07/11/17 00:00 07/11/17 00:00 Intake and Output: 07/11/17 07/11/17 06:59 18:59 Intake Total 240 Output Total 200 Balance 40 - Medications Medications: Current Medications Dexamethasone (Decadron Inj) 4 mg IVP Q6H [facility] Last Admin: 07/11/17 06:12 Dose: 4 mg Heparin Sodium (Porcine) (Heparin) 5,000 units SC Q12 [facility] PRN Reason: Protocol Last Admin: 07/10/17 22:32 Dose: 5,000 units Levetiracetam (Keppra 500mg Ivpb) 500 mg in 100 mls @ 460 mls/hr IVPB Q12 [facility] Last Admin: 07/10/17 22:29 Dose: 460 mls/hr Acetaminophen (Ofirmev) 1,000 mg in 100 mls @ 400 mls/hr IVPB Q6H PRN PRN Reason: Headache Stop: 07/12/17 07:31 Last Admin: 07/10/17 07:48 Dose: 400 mls/hr Insulin Human Regular (Humulin R Low) 0 units SC ACHS [facility] PRN Reason: Protocol Last Admin: 07/10/17 22:32 Dose: Not Given Lorazepam (Ativan) 2 mg IVP Q2H PRN; Protocol PRN Reason: Seizure Ondansetron HCl (Zofran Inj) 4 mg IVP Q6H PRN PRN Reason: Nausea/Vomiting Pantoprazole Sodium (Protonix Inj) 40 mg IVP DAILY [facility] Last Admin: 07/10/17 09:37 Dose: 40 mg - Labs Labs: 07/11/17 06:15 07/11/17 06:15 PT 11.0 SECONDS (9.4-12.5) 07/10/17 02:00 INR 1.01 (0.93-1.08) 07/10/17 02:00 APTT 28.5 Seconds (25.1-36.5) 07/10/17 02:00 - Constitutional Appears: No Acute Distress - Head Exam Head Exam: ATRAUMATIC - Eye Exam Pupil Exam: PERRL Additional comments: uses glasses at all times. - Neurological Exam Neurological Exam: Alert, Awake, CN II-XII Intact, Normal Gait, Oriented x3 Neuro motor strength exam: Left Upper Extremity: 5, Right Upper Extremity: 5, Left Lower Extremity: 5, Right Lower Extremity: 5 Additional comments: Neurological improved from previous examination. He is able to answer questions appropriately and follows all commands. Sensation is intact. Assessment and Plan (1) Mass, brain Assessment & Plan: Case discussed with Dr. Marroquin, continue all current medical, physical, and occupational therapies. There is a plan for transfer to a tertiary center for further management, or follow up with neurosurgery as an outpatient for treatment options. Status: Acute (2) Seizure Assessment & Plan: Case discussed with Dr. Marroquin, continue with medical therapy of Keppra 500 mg Q12. Status: Acute
[2017-07-11] MEDS: levETIRAcetam 500mg IVPB 500 MG/100 ML BAG IVPB SCH ×2 (10:53→22:37)
--- NOTE | 2017-07-11 17:25 | CP.PCM.PN ---
Subjective - Date & Time of Evaluation Date of Evaluation: 07/11/17 Time of Evaluation: 17:20 - Subjective Subjective: Medicine progress note for Dr. Neal Singh DO PGY - 1, Pt s/e bedside. Pt states he is doing fine, and that he is able to move all of his extremities spontaneously. He denies los bilaterally, loss of vision, change in vision, or any other complaints. He further states that he is well aware of his prognosis and that he is willing to undergo whatever procedures he needs to medically. He wants his son, Junior, to be his healthcare proxy. Objective - Vital Signs/Intake and Output Vital Signs (last 24 hours): Temp Pulse Resp BP Pulse Ox 98.6 F 63 20 138/90 98 07/11/17 16:00 07/11/17 16:00 07/11/17 16:00 07/11/17 16:00 07/11/17 16:00 Intake and Output: 07/11/17 07/11/17 06:59 18:59 Intake Total 240 Output Total 200 Balance 40 - Medications Medications: Current Medications Dexamethasone (Decadron Inj) 4 mg IVP Q6H [facility] Last Admin: 07/11/17 10:56 Dose: 4 mg Heparin Sodium (Porcine) (Heparin) 5,000 units SC Q12 [facility] PRN Reason: Protocol Last Admin: 07/11/17 10:55 Dose: 5,000 units Levetiracetam (Keppra 500mg Ivpb) 500 mg in 100 mls @ 460 mls/hr IVPB Q12 [facility] Last Admin: 07/11/17 10:53 Dose: 460 mls/hr Acetaminophen (Ofirmev) 1,000 mg in 100 mls @ 400 mls/hr IVPB Q6H PRN PRN Reason: Headache Stop: 07/12/17 07:31 Last Admin: 07/10/17 07:48 Dose: 400 mls/hr Insulin Human Regular (Humulin R Low) 0 units SC ACHS [facility] PRN Reason: Protocol Last Admin: 07/11/17 12:30 Dose: 1 units Lorazepam (Ativan) 2 mg IVP Q2H PRN; Protocol PRN Reason: Seizure Ondansetron HCl (Zofran Inj) 4 mg IVP Q6H PRN PRN Reason: Nausea/Vomiting Pantoprazole Sodium (Protonix Inj) 40 mg IVP DAILY [facility] Last Admin: 07/11/17 10:55 Dose: 40 mg - Labs Labs: 07/11/17 06:15 07/11/17 06:15 PT 11.0 SECONDS (9.4-12.5) 07/10/17 02:00 INR 1.01 (0.93-1.08) 07/10/17 02:00 APTT 28.5 Seconds (25.1-36.5) 07/10/17 02:00 - Additional Findings Additional findings: Phys Exam: VS as below Const'l: pleasant, a&o x 4, nad Head/Neck: neck supple, no jvd, trachea midline, carotid midline, no cervical /head mass Eyes: zeinab, nonicteric sclera, eom intact ENT: auditory acuity grossly intact, throat not congested, no nasal deformity Cardio: rrr, no m/r/g, no carotid bruit, nml s1, s2 Pulm: no accessory muscle use, equal nml breath sounds bilaterally, ctab Abd: s/nt/nd, nbs x 4 q, no palpable masses Derm: no rashes, no ulcers, no lesions Extr: no edema, no cyanosis, no calf tenderness, no lesions, no varicosities Neuro: Pt has some gait instability; cn II-XII grossly intact, rue and rle 5/ 5 muscle strength; lue, lle now 5/5 strength; no los ue, le bilaterally and core Assessment and Plan - Assessment and Plan (Free Text) Assessment: A/P 62 M with PMHx significant for erectile dysfunction, DM, and HLD presenting with acute onset L sided weakness and acute tonic clonic seizure. Found to have a mass on CT and MRI indicative of a glioblastoma. Awaiting placement at [facility] Parietal and Occipital Lobe Mass Likely 2/2 Glioblastoma - CT head significant for large area of edema in right parietal and occipital lobe 2/2 vasogenic edema 2/2 right occipital mass with mass effect and 4mm midline shift to the left - Passed swallow eval - MRI brain shows mass indicative of glioblastoma - Patient received Decadron 10mg IV, Keppra 1000mg IV, and Ativan 2mg IV in the ER - Continue Decadron 4mg IV Q6 - Continue Keppra 500mg IV Q12 - Continue Ativan 2mg Q2H PRN for seizures - Continue Zofran 4mg IV Q6H for nausea - Neurochecks Q2 and maintain seizure and fall precautions - Maintain HOB >30 - Consult neurology and neurosurgery Pt accepted at [facility] by Dr. Michel Kerr Hx/o DM - Continue home Metformin Hx/o ED - Continue viagra
--- NOTE | 2017-07-11 21:37 | CP.PCM.PCO ---
Addendum Addendum: 07/11/17 21:36 [facility] bed management ([phone]) was contacted regarding placement but there was no answer.
[2017-07-12] MEDS: Dexamethasone 4 mg/1 ml IVP SCH ×4 (05:25→21:39)
--- NOTE | 2017-07-12 07:00 | CP.PCM.PN ---
Subjective - Date & Time of Evaluation Date of Evaluation: 07/12/17 Time of Evaluation: 06:57 - Subjective Subjective: Mr. Mcconnell was seen and examined at the bedside. He is alert, oriented in all spheres. He states of being excited to be transfer to a tertiary hospital for further evaluation and management of his brain mass. He denies any headache , dizziness, numbness, weakness, nausea, or vomiting. He reamins with a telesitter for seizure precaution and patient safety. There was no untoward events overnight. Objective - Vital Signs/Intake and Output Vital Signs (last 24 hours): Temp Pulse Resp BP Pulse Ox 98.6 F 63 20 138/90 98 07/11/17 16:00 07/11/17 16:00 07/11/17 16:00 07/11/17 16:00 07/11/17 16:00 Intake and Output: 07/11/17 07/12/17 18:59 06:59 Intake Total 420 Output Total 0 Balance 420 - Medications Medications: Current Medications Dexamethasone (Decadron Inj) 4 mg IVP Q6H [facility] Last Admin: 07/12/17 05:25 Dose: 4 mg Heparin Sodium (Porcine) (Heparin) 5,000 units SC Q12 [facility] PRN Reason: Protocol Last Admin: 07/11/17 22:33 Dose: 5,000 units Levetiracetam (Keppra 500mg Ivpb) 500 mg in 100 mls @ 460 mls/hr IVPB Q12 [facility] Last Admin: 07/11/17 22:37 Dose: 460 mls/hr Acetaminophen (Ofirmev) 1,000 mg in 100 mls @ 400 mls/hr IVPB Q6H PRN PRN Reason: Headache Stop: 07/12/17 07:31 Last Admin: 07/10/17 07:48 Dose: 400 mls/hr Insulin Human Regular (Humulin R Low) 0 units SC ACHS [facility] PRN Reason: Protocol Last Admin: 07/11/17 22:51 Dose: Not Given Lorazepam (Ativan) 2 mg IVP Q2H PRN; Protocol PRN Reason: Seizure Ondansetron HCl (Zofran Inj) 4 mg IVP Q6H PRN PRN Reason: Nausea/Vomiting Pantoprazole Sodium (Protonix Inj) 40 mg IVP DAILY [facility] Last Admin: 07/11/17 10:55 Dose: 40 mg - Labs Labs: 07/11/17 06:15 07/11/17 06:15 PT 11.0 SECONDS (9.4-12.5) 07/10/17 02:00 INR 1.01 (0.93-1.08) 07/10/17 02:00 APTT 28.5 Seconds (25.1-36.5) 07/10/17 02:00 - Constitutional Appears: No Acute Distress - Head Exam Head Exam: ATRAUMATIC - Neurological Exam Neurological Exam: Alert, Awake, CN II-XII Intact, Oriented x3 Neuro motor strength exam: Left Upper Extremity: 5, Right Upper Extremity: 5, Left Lower Extremity: 5, Right Lower Extremity: 5 Additional comments: Neurological unchanged from previous examination. Assessment and Plan (1) Mass, brain Assessment & Plan: Case discussed with Dr. Marroquin, continue with the plan for transfer to a tertiary institution. Continue all current medical regimen. Status: Acute (2) Seizure Assessment & Plan: Case discussed with Dr. Marroquin, continue all current medical, physical and occupational therapies. Maintain Seizures precautions. Status: Acute
[2017-07-12 07:12] LABS: GRAN # 13.28 (1.4-6.5); GRAN % 89.2 % (50.0-68.0); HEMATOCRIT 41.3 % (42.0-52.0); LYMPH # 1.1 (1.2-3.4); LYMPH % 7.3 % (22.0-35.0); MEAN CELL VOLUME 87.9 fl (80.0-105.0); MEAN CORPUSCULAR HEMOGLOBIN 29.6 pg (25.0-35.0); MEAN CORPUSCULAR HGB CONC 33.7 g/dl (31.0-37.0); MONO # 0.5 (0.1-0.6); MONO % 3.5 % (1.0-6.0); RED CELL DISTRIBUTION WIDTH 14.2 % (11.5-14.5); WHITE BLOOD COUNT 14.9 10^3/ul (4.5-11.0)
[2017-07-12] MEDS: Insulin Reg-LOW-Coverage SC SCH ×4 (08:26→21:56)
[2017-07-12 08:35] LABS: ALB/GLOB RATIO 1.3 (1.1-1.8); ALKALINE PHOSPHATASE 48 U/L (38-126); ALT/SGPT 31 U/L (7-56); AST/SGOT 38 U/L (17-59); BILIRUBIN,TOTAL 0.7 mg/dL (0.2-1.3); BLOOD UREA NITROGEN 25 mg/dL (7-21); CALCIUM 9.4 mg/dL (8.4-10.5); CARBON DIOXIDE 26 mmol/L (21-33); CHLORIDE 105 mmol/L (98-107); GFR AFRICAN-AMERICAN > 60; GLUCOSE,RANDOM 158 mg/dL (70-110); POTASSIUM 4.1 mmol/L (3.6-5.0); SODIUM 141 mmol/L (132-148); TOTAL PROTEIN 6.9 g/dL (5.8-8.3)
[2017-07-12] MEDS: levETIRAcetam 500mg IVPB 500 MG/100 ML BAG IVPB SCH ×2 (11:21→21:38)
--- NOTE | 2017-07-12 13:08 | CP.PCM.DIS ---
<Damir Jackson - Last Filed: 07/12/17 15:39> Provider - Provider Date of Admission: 07/10/17 03:09 Attending physician: Steffanie Pfeiffer MD Primary care physician: NO PRIMARY CARE PROVIDER Consults: Neurology: Dr. Marroquin Neurosurgery: Dr. Richards Time Spent in preparation of Discharge (in minutes): 45 Hospital Course - Lab Results Lab Results: Micro Results 07/10/17 04:15 Naris MRSA Culture (Admit) - Final MRSA NOT DETECTED Most Recent Lab Values WBC 14.9 10^3/ul (4.5-11.0) H 07/12/17 06:10 RBC 4.70 10^6/uL (3.5-6.1) 07/12/17 06:10 Hgb 13.9 g/dL (14.0-18.0) L 07/12/17 06:10 Hct 41.3 % (42.0-52.0) L 07/12/17 06:10 MCV 87.9 fl (80.0-105.0) 07/12/17 06:10 MCH 29.6 pg (25.0-35.0) 07/12/17 06:10 MCHC 33.7 g/dl (31.0-37.0) 07/12/17 06:10 RDW 14.2 % (11.5-14.5) 07/12/17 06:10 Plt Count 211 10^3/uL (120.0-450.0) 07/12/17 06:10 MPV 11.0 fl (7.0-11.0) 07/12/17 06:10 Gran % 89.2 % (50.0-68.0) H 07/12/17 06:10 Lymph % (Auto) 7.3 % (22.0-35.0) L 07/12/17 06:10 [place] % (Auto) 3.5 % (1.0-6.0) 07/12/17 06:10 Eos % (Auto) 0.0 % (1.5-5.0) L 07/12/17 06:10 Baso % (Auto) 0.0 % (0.0-3.0) 07/12/17 06:10 Gran # 13.28 (1.4-6.5) H 07/12/17 06:10 Lymph # 1.1 (1.2-3.4) L 07/12/17 06:10 [place] # 0.5 (0.1-0.6) 07/12/17 06:10 Eos # 0.0 (0.0-0.7) 07/12/17 06:10 Baso # 0.00 K/mm3 (0.0-2.0) 07/12/17 06:10 PT 11.0 SECONDS (9.4-12.5) 07/10/17 02:00 INR 1.01 (0.93-1.08) 07/10/17 02:00 APTT 28.5 Seconds (25.1-36.5) 07/10/17 02:00 Sodium 141 mmol/L (132-148) 07/12/17 06:10 Potassium 4.1 mmol/L (3.6-5.0) 07/12/17 06:10 Chloride 105 mmol/L (98-107) 07/12/17 06:10 Carbon Dioxide 26 mmol/L (21-33) 07/12/17 06:10 Anion Gap 15 (10-20) 07/12/17 06:10 BUN 25 mg/dL (7-21) H 07/12/17 06:10 Creatinine 1.0 mg/dl (0.8-1.5) 07/12/17 06:10 Est GFR ( Amer) > 60 07/12/17 06:10 Est GFR (Non-Af Amer) > 60 07/12/17 06:10 POC Glucose (mg/dL) 151 mg/dL (65-110) H 07/11/17 21:29 Random Glucose 158 mg/dL (70-110) H 07/12/17 06:10 Hemoglobin A1c 6.4 % (4.2-6.5) 07/10/17 02:00 Serum Osmolality 295 mosm/kg (272-300) 07/10/17 19:58 Calcium 9.4 mg/dL (8.4-10.5) 07/12/17 06:10 Phosphorus 3.1 mg/dL (2.5-4.5) 07/11/17 06:15 Magnesium 1.9 mg/dL (1.7-2.2) 07/11/17 06:15 Total Bilirubin 0.7 mg/dL (0.2-1.3) 07/12/17 06:10 AST 38 U/L (17-59) 07/12/17 06:10 ALT 31 U/L (7-56) 07/12/17 06:10 Alkaline Phosphatase 48 U/L (38-126) 07/12/17 06:10 Troponin I < 0.01 ng/mL 07/10/17 02:00 Total Protein 6.9 g/dL (5.8-8.3) 07/12/17 06:10 Albumin 3.9 g/dL (3.0-4.8) 07/12/17 06:10 Globulin 3.0 gm/dL 07/12/17 06:10 Albumin/Globulin Ratio 1.3 (1.1-1.8) 07/12/17 06:10 Triglycerides 186 mg/dL (35-160) H 07/10/17 02:00 Cholesterol 166 mg/dL (130-200) 07/10/17 02:00 LDL Cholesterol Direct 107 mg/dL (0-129) 07/10/17 02:00 HDL Cholesterol 45 mg/dL (29-60) 07/10/17 02:00 TSH 3rd Generation 5.21 mIU/mL (0.46-4.68) H 07/10/17 07:30 Urine Color Yellow (YELLOW) 07/10/17 02:00 Urine Appearance Clear (CLEAR) 07/10/17 02:00 Urine pH 5.5 (4.7-8.0) 07/10/17 02:00 Ur Specific [place] >= 1.030 (1.005-1.035) 07/10/17 02:00 Urine Protein 30 mg/dL (<30 mg/dL) H 07/10/17 02:00 Urine Glucose (UA) Negative mg/dL (NEGATIVE) 07/10/17 02:00 Urine Ketones Negative mg/dL (NEGATIVE) 07/10/17 02:00 Urine Blood Trace-intact (NEGATIVE) H 07/10/17 02:00 Urine Nitrate Negative (NEGATIVE) 07/10/17 02:00 Urine Bilirubin Negative (NEGATIVE) 07/10/17 02:00 Urine Urobilinogen 0.2 E.U./dL (<1 E.U./dL) 07/10/17 02:00 Ur Leukocyte Esterase Negative Georges/uL (NEGATIVE) 07/10/17 02:00 Urine RBC 0 - 2 /hpf (0-2) 07/10/17 02:00 Urine WBC 0 - 2 /hpf (0-6) 07/10/17 02:00 Ur Epithelial Cells 0 - 2 /hpf (0-5) 07/10/17 02:00 Urine Opiates Screen Negative (NEGATIVE) 07/10/17 02:00 Urine Methadone Screen Negative (NEGATIVE) 07/10/17 02:00 Ur Barbiturates Screen Negative (NEGATIVE) 07/10/17 02:00 Ur Phencyclidine Scrn Negative (NEGATIVE) 07/10/17 02:00 Ur Amphetamines Screen Negative (NEGATIVE) 07/10/17 02:00 U Benzodiazepines Scrn Negative (NEGATIVE) 07/10/17 02:00 U Oth Cocaine Metabols Negative (NEGATIVE) 07/10/17 02:00 U Cannabinoids Screen Negative (NEGATIVE) 07/10/17 02:00 Blood Type O POSITIVE 07/10/17 02:20 Blood Type Confirm O POSITIVE 07/10/17 02:40 Antibody Screen Negative 07/10/17 02:20 BBK History Checked No verified bt 07/10/17 02:20 - Hospital Course Hospital Course: HPI: 62 yo M with PMH of high cholesterol presented to the ED brought by EMS, complaining of left sided weakness. During my encounter, patient was lethargic after receiving 2mg Ativan, so history was obtained from ER staff and son who was at bedside. Per ER staff, patient was at home, at 930PM tried to get out of his chair to go to the bathroom, and noticed left sided weakness and difficulty walking. He had a guest in his home at the time who called EMS to bring him to the hospital. Per the son, patient was normal without any complaints earlier this week, and generally leads a healthy lifestyle, exercising regularly and eating healthily. In the ER, patient was lucid, AAOx3, with left sided weakness and right sided twitching movements. Code stroke was called and patient was taken for CT head, and had a generalized tonic clonic seizure en route, which abated with 2mg IV ativan. Hospital Course: Throughout his stay here, the following imaging was performed: CXR 07/10/17: Acromioclavicular arthrosis, no active pulm dz Head CT 07/10/17: Mass with midline shift, 4 mm Neck MRA 07/10/17: Negative Brain MRI 07/10/17: Mass indicative of glioblastoma Head MRA 07/10/17: Negative Ch/Abd/P CT 07/10/17: Negative Pt was found to have increasingly better strength and sensation throughout the course of his stay. All of his neurological symptoms resolved. Of note, patient wants his son to be his healthcare proxy should he not be able to make decisions. A/P Day of D/c: 62 M with PMHx significant for erectile dysfunction, DM, and HLD presenting with acute onset L sided weakness and acute tonic clonic seizure. Found to have a mass on CT and MRI indicative of a glioblastoma. Parietal and Occipital Lobe Mass Likely 2/2 Glioblastoma - CT head significant for large area of edema in right parietal and occipital lobe 2/2 vasogenic edema 2/2 right occipital mass with mass effect and 4mm midline shift to the left - Passed swallow eval - MRI brain shows mass indicative of glioblastoma - Patient received Decadron 10mg IV, Keppra 1000mg IV, and Ativan 2mg IV in the ER - Continue Decadron 4mg IV Q6 to oral dose of 4 mg q6 - Continue Keppra 500mg IV Q12 to oral dose of 500 mg q12 - Continue Ativan 2mg Q2H PRN for seizures - Continue Zofran 4mg IV Q6H for nausea - Neurochecks Q2 and maintain seizure and fall precautions - Maintain HOB >30 - Consult neurology and neurosurgery Pt accepted at [facility] by Dr. Michel Kerr Hx/o DM - Continue home Metformin Hx/o ED - Continue viagra Discharge Exam - Head Exam Head Exam: ATRAUMATIC - Additional Findings Additional findings: Phys Exam: VS as below Const'l: pleasant, a&o x 4, nad Head/Neck: neck supple, no jvd, trachea midline, carotid midline, no cervical /head mass Eyes: zeinab, nonicteric sclera, eom intact ENT: auditory acuity grossly intact, throat not congested, no nasal deformity Cardio: rrr, no m/r/g, no carotid bruit, nml s1, s2 Pulm: no accessory muscle use, equal nml breath sounds bilaterally, ctab Abd: s/nt/nd, nbs x 4 q, no palpable masses Derm: no rashes, no ulcers, no lesions Extr: no edema, no cyanosis, no calf tenderness, no lesions, no varicosities Neuro: Pt has some gait instability; cn II-XII grossly intact, rue and rle 5/ 5 muscle strength; lue, lle now 5/5 strength; no los ue, le bilaterally and core Discharge Plan - Follow Up Plan Condition: CRITICAL Disposition: HOME/ ROUTINE Patient education suggested?: Yes Instructions: Pneumococcal Vaccine for Adults (DC), Hydrocele (DC), Influenza Vaccine (GEN), Epilepsy (DC) Additional Instructions: 1. Please follow up with Neurosurgeon at [facility] 2. Please follow recommendations of your neurologist, Dr. Marroquin Referrals: PCP,NO [Primary Care Provider] - <Elie Bhatti - Last Filed: 07/13/17 21:19> Provider - Provider Date of Admission: 07/10/17 03:09 Attending physician: Steffanie Pfeiffer MD Primary care physician: NO PRIMARY CARE PROVIDER Hospital Course - Lab Results Lab Results: Micro Results 07/10/17 04:15 [facility] MRSA Culture (Admit) - Final MRSA NOT DETECTED Most Recent Lab Values WBC 12.0 10^3/ul (4.5-11.0) H 07/13/17 06:30 RBC 4.84 10^6/uL (3.5-6.1) 07/13/17 06:30 Hgb 14.6 g/dL (14.0-18.0) 07/13/17 06:30 Hct 42.5 % (42.0-52.0) 07/13/17 06:30 MCV 87.8 fl (80.0-105.0) 07/13/17 06:30 MCH 30.2 pg (25.0-35.0) 07/13/17 06:30 MCHC 34.4 g/dl (31.0-37.0) 07/13/17 06:30 RDW 14.0 % (11.5-14.5) 07/13/17 06:30 Plt Count 204 10^3/uL (120.0-450.0) 07/13/17 06:30 MPV 10.0 fl (7.0-11.0) 07/13/17 06:30 Gran % 86.4 % (50.0-68.0) H 07/13/17 06:30 Lymph % (Auto) 8.3 % (22.0-35.0) L 07/13/17 06:30 [place] % (Auto) 5.3 % (1.0-6.0) 07/13/17 06:30 Eos % (Auto) 0.0 % (1.5-5.0) L 07/13/17 06:30 Baso % (Auto) 0.0 % (0.0-3.0) 07/13/17 06:30 Gran # 10.37 (1.4-6.5) H 07/13/17 06:30 Lymph # 1.0 (1.2-3.4) L 07/13/17 06:30 [place] # 0.6 (0.1-0.6) 07/13/17 06:30 Eos # 0.0 (0.0-0.7) 07/13/17 06:30 Baso # 0.00 K/mm3 (0.0-2.0) 07/13/17 06:30 PT 11.0 SECONDS (9.4-12.5) 07/10/17 02:00 INR 1.01 (0.93-1.08) 07/10/17 02:00 APTT 28.5 Seconds (25.1-36.5) 07/10/17 02:00 Sodium 141 mmol/L (132-148) 07/13/17 06:30 Potassium 4.2 mmol/L (3.6-5.0) 07/13/17 06:30 Chloride 105 mmol/L (98-107) 07/13/17 06:30 Carbon Dioxide 28 mmol/L (21-33) 07/13/17 06:30 Anion Gap 13 (10-20) 07/13/17 06:30 BUN 27 mg/dL (7-21) H 07/13/17 06:30 Creatinine 1.0 mg/dl (0.8-1.5) 07/13/17 06:30 Est GFR ( Amer) > 60 12 06:30 Est GFR (Non-Af Amer) > 60 07/13/17 06:30 POC Glucose (mg/dL) 165 mg/dL (65-110) H 07/13/17 16:02 Random Glucose 141 mg/dL (70-110) H 07/13/17 06:30 Hemoglobin A1c 6.4 % (4.2-6.5) 07/10/17 02:00 Serum Osmolality 295 mosm/kg (272-300) 07/10/17 19:58 Calcium 9.1 mg/dL (8.4-10.5) 07/13/17 06:30 Phosphorus 3.1 mg/dL (2.5-4.5) 07/11/17 06:15 Magnesium 1.9 mg/dL (1.7-2.2) 07/11/17 06:15 Total Bilirubin 0.8 mg/dL (0.2-1.3) 07/13/17 06:30 AST 33 U/L (17-59) 07/13/17 06:30 ALT 41 U/L (7-56) 07/13/17 06:30 Alkaline Phosphatase 50 U/L (38-126) 07/13/17 06:30 Troponin I < 0.01 ng/mL 07/10/17 02:00 Total Protein 6.9 g/dL (5.8-8.3) 07/13/17 06:30 Albumin 3.9 g/dL (3.0-4.8) 07/13/17 06:30 Globulin 2.9 gm/dL 07/13/17 06:30 Albumin/Globulin Ratio 1.3 (1.1-1.8) 07/13/17 06:30 Triglycerides 186 mg/dL (35-160) H 07/10/17 02:00 Cholesterol 166 mg/dL (130-200) 07/10/17 02:00 LDL Cholesterol Direct 107 mg/dL (0-129) 07/10/17 02:00 HDL Cholesterol 45 mg/dL (29-60) 07/10/17 02:00 TSH 3rd Generation 5.21 mIU/mL (0.46-4.68) H 07/10/17 07:30 Urine Color Yellow (YELLOW) 07/10/17 02:00 Urine Appearance Clear (CLEAR) 07/10/17 02:00 Urine pH 5.5 (4.7-8.0) 07/10/17 02:00 Ur Specific [place] >= 1.030 (1.005-1.035) 07/10/17 02:00 Urine Protein 30 mg/dL (<30 mg/dL) H 07/10/17 02:00 Urine Glucose (UA) Negative mg/dL (NEGATIVE) 07/10/17 02:00 Urine Ketones Negative mg/dL (NEGATIVE) 07/10/17 02:00 Urine Blood Trace-intact (NEGATIVE) H 07/10/17 02:00 Urine Nitrate Negative (NEGATIVE) 07/10/17 02:00 Urine Bilirubin Negative (NEGATIVE) 07/10/17 02:00 Urine Urobilinogen 0.2 E.U./dL (<1 E.U./dL) 07/10/17 02:00 Ur Leukocyte Esterase Negative Georges/uL (NEGATIVE) 07/10/17 02:00 Urine RBC 0 - 2 /hpf (0-2) 07/10/17 02:00 Urine WBC 0 - 2 /hpf (0-6) 07/10/17 02:00 Ur Epithelial Cells 0 - 2 /hpf (0-5) 07/10/17 02:00 Urine Opiates Screen Negative (NEGATIVE) 07/10/17 02:00 Urine Methadone Screen Negative (NEGATIVE) 07/10/17 02:00 Ur Barbiturates Screen Negative (NEGATIVE) 07/10/17 02:00 Ur Phencyclidine Scrn Negative (NEGATIVE) 07/10/17 02:00 Ur Amphetamines Screen Negative (NEGATIVE) 07/10/17 02:00 U Benzodiazepines Scrn Negative (NEGATIVE) 07/10/17 02:00 U Oth Cocaine Metabols Negative (NEGATIVE) 07/10/17 02:00 U Cannabinoids Screen Negative (NEGATIVE) 07/10/17 02:00 Blood Type O POSITIVE 07/10/17 02:20 Blood Type Confirm O POSITIVE 07/10/17 02:40 Antibody Screen Negative 07/10/17 02:20 BBK History Checked No verified bt 07/10/17 02:20 Attending/Attestation - Attestation I have personally seen and examined this patient.: Yes I have fully participated in the care of the patient.: Yes I have reviewed all pertinent clinical information, including history, physical exam and plan: Yes Notes (Text): 07/13/17 21:14 Patient seen and examined independently at bedside. Vitals, notes and overnight issues reviewed. Continue Decadron/Keppra regimen, monitor BP. Neurology follow up appreciated. No new complaints provided and no new seizure episodes reported. Awaiting transfer to [facility]. Agree with the transfer plan of care outlined by the resident
[2017-07-13] MEDS: Dexamethasone 4 mg/1 ml IVP SCH ×3 (05:29→17:31)
[2017-07-13 06:49] LABS: GRAN # 10.37 (1.4-6.5); GRAN % 86.4 % (50.0-68.0); HEMATOCRIT 42.5 % (42.0-52.0); LYMPH % 8.3 % (22.0-35.0); MEAN CELL VOLUME 87.8 fl (80.0-105.0); MEAN CORPUSCULAR HEMOGLOBIN 30.2 pg (25.0-35.0); MEAN CORPUSCULAR HGB CONC 34.4 g/dl (31.0-37.0); MONO # 0.6 (0.1-0.6); MONO % 5.3 % (1.0-6.0)
[2017-07-13 08:02] LABS: ALB/GLOB RATIO 1.3 (1.1-1.8); ALKALINE PHOSPHATASE 50 U/L (38-126); ALT/SGPT 41 U/L (7-56); AST/SGOT 33 U/L (17-59); BILIRUBIN,TOTAL 0.8 mg/dL (0.2-1.3); BLOOD UREA NITROGEN 27 mg/dL (7-21); CALCIUM 9.1 mg/dL (8.4-10.5); CARBON DIOXIDE 28 mmol/L (21-33); CHLORIDE 105 mmol/L (98-107); GFR AFRICAN-AMERICAN > 60; GLUCOSE,RANDOM 141 mg/dL (70-110); POTASSIUM 4.2 mmol/L (3.6-5.0); SODIUM 141 mmol/L (132-148); TOTAL PROTEIN 6.9 g/dL (5.8-8.3)
[2017-07-13 08:07] VITALS: RESP 18
[2017-07-13] MEDS: Insulin Reg-LOW-Coverage SC SCH ×3 (08:42→17:30)
[2017-07-13] MEDS: levETIRAcetam 500mg IVPB 500 MG/100 ML BAG IVPB SCH (10:02)
[2017-07-13 16:00] VITALS: BP 134/75; PULSE 64; TEMP 97.6; O2SAT 95
== END 2017-07-13 18:38 | disposition short-term general hospital (02) | DRG 10 ==
LOC: ED 01:55 → ERH 03:09 → CCU 04:20 → 5RNO 21:21
PROVIDERS: ADMIT Internal Medicine; ATTEND Hospitalist
PROC: 02HV33Z Insertion of Infusion Device into Superior Vena Cava, Percutaneous Approach (ICD-10-PCS; principal; 2017-07-10)
PROC: B548ZZA Ultrasonography of Superior Vena Cava, Guidance (ICD-10-PCS; 2017-07-10)
DX: C71.9 Malignant neoplasm of brain, unspecified (principal); G40.409 Other generalized epilepsy and epileptic syndromes, not intractable, without status epilepticus; G93.6 Cerebral edema; E78.00 Pure hypercholesterolemia, unspecified; R26.2 Difficulty in walking, not elsewhere classified; R53.1 Weakness; N52.9 Male erectile dysfunction, unspecified; E11.9 Type 2 diabetes mellitus without complications; Z79.84 Long term (current) use of oral hypoglycemic drugs

== ENCOUNTER 2017-09-05 22:26 | Emergency (ER) | payer MEDICAID, OTHER ==
[2017-09-05 22:27] VITALS: BMI 31.7
[2017-09-05 22:46] VITALS: RESP 18
[2017-09-05 23:52] LABS: BASO # 0.01 K/mm3 (0.0-2.0); BASO % 0.1 % (0.0-3.0); GRAN # 9.72 (1.4-6.5); GRAN % 93.1 % (50.0-68.0); HEMOGLOBIN 14.5 g/dL (14.0-18.0); LYMPH # 0.5 (1.2-3.4); LYMPH % 4.7 % (22.0-35.0); MEAN CORPUSCULAR HEMOGLOBIN 30.6 pg (25.0-35.0); MEAN CORPUSCULAR HGB CONC 33.6 g/dl (31.0-37.0); MEAN PLATELET VOLUME 10.4 fl (7.0-11.0); MONO # 0.2 (0.1-0.6); MONO % 2.1 % (1.0-6.0); PLATELET COUNT 275 10^3/uL (120.0-450.0); RBC 4.74 10^6/uL (3.5-6.1); RED CELL DISTRIBUTION WIDTH 13.7 % (11.5-14.5); WHITE BLOOD COUNT 10.4 10^3/ul (4.5-11.0)
--- NOTE | 2017-09-05 23:53 | ED PDOC ---
Arrival/HPI - History of Present Illness Time/Duration: 1-3 hours Symptom Onset: Sudden <Renae Minor - Last Filed: 09/06/17 02:21> - General Historian: Patient, Family - History of Present Illness Activities at Onset: Light Context: Home <Todd Molina DO - Last Filed: 09/06/17 04:23> - General Chief Complaint: Weakness/Neurological Deficit Time Seen by Provider: 09/05/17 22:28 - History of Present Illness Narrative History of Present Illness (Text): 09/05/17 23:50 patient had brain surgery for glioblastoma july 18. Per son, the patient was dropped off at home at 1pm. Patient was then seen at 9pm with lethargic mentation. Patient takes chemotherapy at home. Patient goes for radiation therapy at [facility] at [place], [place] saturday-saturday each week for the past 3 weeks. Patient admits to frontal headache and fatigue. Patient states he's on a blood thinner at home. Patient's son is worried that patient took too much xanax. (Renae Minor) Past Medical History - Provider Review Nursing Documentation Reviewed: Yes - Travel History Have you recently traveled outside [place] w/in the past 3 mons?: No - Cardiac Hx Cardiac Disorders: Yes Hx Pacemaker: No - Pulmonary Hx Respiratory Disorders: No - Neurological Other/Comment: brain cancer stage 4 - HEENT Hx HEENT Disorder: No - Renal Hx Renal Disorder: No - Endocrine/Metabolic Hx Diabetes Mellitus Type 2: Yes - Hematological/Oncological Hx Cancer: Yes (brain) Hx Chemotherapy: Yes - Integumentary Hx Dermatological Disorder: No - Musculoskeletal/Rheumatological Hx Musculoskeletal Disorders: No Hx Falls: No - Gastrointestinal Hx Gastrointestinal Disorders: No - Genitourinary/Gynecological Hx Genitourinary Disorders: Yes Hx Prostate Problems: Yes - Psychiatric Hx Psychophysiologic Disorder: No Hx Substance Use: No - Surgical History Other/Comment: brain mass removed 07/18/2017 <Renae Minor - Last Filed: 09/06/17 02:21> Family/Social History - Physician Review Nursing Documentation Reviewed: Yes Family/Social History: Unknown Family HX Smoking Status: Former Smoker Hx Alcohol Use: No Hx Substance Use: No <Renae Minor - Last Filed: 09/06/17 02:21> Allergies/Home Meds <Renae Minor - Last Filed: 09/06/17 02:21> <Todd Molina DO - Last Filed: 09/06/17 04:23> Allergies/Adverse Reactions: Allergies No Known Allergies Allergy (Verified 09/05/17 22:35) Home Medications: Home Meds Medication Instructions Recorded Confirmed Unobtainable 09/05/17 09/05/17 Review of Systems - Physician Review All systems were reviewed & negative as marked: Yes - Review of Systems Constitutional: Fatigue. absent: Weight Change, Fevers Eyes: Normal ENT: Normal Respiratory: Normal Cardiovascular: Normal. absent: Chest Pain, Palpitations, Edema Gastrointestinal: Normal. absent: Abdominal Pain, Stool Changes, Constipation Genitourinary Male: Normal. absent: Dysuria, Frequency, Hematuria Musculoskeletal: Normal. absent: Arthralgias, Back Pain, Neck Pain Skin: Normal. absent: Rash, Pruritis, Skin Lesions Neurological: Headache, Disequilibrium (per son, patient has gait abnormality) Endocrine: absent: Diaphoresis, Polyuria, Polydipsia Hemo/Lymphatic: absent: Adenopathy, Easy Bleeding, Easy Bruising Psychiatric: absent: Anxiety, Depression, Suicidal Ideation <Renae Minor - Last Filed: 09/06/17 02:21> Physical Exam Vital Signs Reviewed: Yes Temperature: Afebrile Blood Pressure: Normal Pulse: Regular Respiratory Rate: Normal Appearance: Positive for: Comfortable Mental Status: Positive for: Lethargic - Systems Exam Head: Present: Atraumatic Pupils: Present: PERRL Extroacular Muscles: Present: EOMI. No: Gaze Palsy, Entrapment Conjunctiva: Present: Normal. No: Injected, Icteric Mouth: Present: Moist Mucous Membranes, Normal Lips. No: Dry, Drooling Nose (External): Present: Atraumatic Neck: Present: Normal Range of Motion, Trachea Midline. No: JVD, Lymphadenopathy Cardiovascular: Present: Regular Rate and Rhythm, Normal S1, S2. No: Murmurs Abdomen: Present: Normal Bowel Sounds. No: Tenderness, Distention, Hernias Upper Extremity: Present: Normal Inspection, Normal ROM, NORMAL PULSES, Capillary Refill < 2s, Other (left upper extremity 4/5 muscle strength > weaker than the right). No: Edema Lower Extremity: Present: Normal Inspection. No: Edema Neurological: Present: CN II-XII Intact, Motor Func Grossly Intact, Other ( patient unable to do the finger nose finger test with left eye) Skin: Present: Warm, Dry, Normal Color Psychiatric: Present: Oriented x 3, Lethargic. No: Alert, Normal Insight, Normal Concentration <Renae Minor - Last Filed: 09/06/17 02:21> Vital Signs Temp Pulse Resp BP Pulse Ox 09/06/17 03:10 98.7 F 116 H 18 128/82 100 09/06/17 02:38 105 H 18 136/75 100 09/06/17 01:32 102 H 18 143/79 100 09/05/17 22:39 98.0 F 91 H 18 130/82 97 Medical Decision Making - Lab Interpretations I have reviewed the lab results: Yes - EKG Interpretation Interpreted by ED Physician: Yes Type: 12 lead EKG <Renae Minor - Last Filed: 09/06/17 02:21> <Todd Molina DO - Last Filed: 09/06/17 04:23> ED Course and Treatment: CBC, CMP Cardiac ISO Urine Drug Screen CXR CT head without contrast UA EKG 09/06/17 00:58 (Renae Minor) 09/06/17 00:21 62 year old male presents to the Emergency department complaining of headache and neurological deficit. In agreement with resident note, which includes further HPI details. Patient was seen and evaluated with resident, came up with plan and treatment together. 09/06/17 02:34 Discussed case with neurosurgery director of early childhood education at [facility], who requests patient to be transferred to their facility. As per request, patient will be transferred to [facility] Emergency department to be reviewed by Dr. Kerr for further observation. Patient is currently in no acute distress and is stable to be transferred using BLS service. Patient and his family understand and is in agreement with plan. (Todd Molina DO) - Lab Interpretations Lab Results: 09/05/17 23:39 09/05/17 23:39 Lab Results 09/06/17 01:20: Urine Color Yellow, Urine Appearance Clear, Urine pH 6.0, Ur Specific Sumner >= 1.030, Urine Protein Negative, Urine Glucose (UA) Negative, Urine Ketones Negative, Urine Blood Negative, Urine Nitrate Negative, Urine Bilirubin Negative, Urine Urobilinogen 0.2, Ur Leukocyte Esterase Negative 09/06/17 01:20: Urine Opiates Screen Negative, Urine Methadone Screen Negative, Ur Barbiturates Screen Negative, Ur Phencyclidine Scrn Negative, Ur Amphetamines Screen Negative, U Benzodiazepines Scrn Negative, U Oth Cocaine Metabols Negative, U Cannabinoids Screen Negative 09/05/17 23:39: Alcohol, Quantitative < 10 09/05/17 23:39: Sodium 138, Potassium 4.8, Chloride 100, Carbon Dioxide 28, Anion Gap 15, BUN 13, Creatinine 0.8, Est GFR ( Amer) > 60, Est GFR (Non- Af Amer) > 60, Random Glucose 178 H, Calcium 10.1, Total Bilirubin 0.5, AST 36, ALT 34, Alkaline Phosphatase 75, Lactate Dehydrogenase 598, Total Creatine Kinase 87, Troponin I < 0.01, Total Protein 7.4, Albumin 4.7, Globulin 2.7, Albumin/Globulin Ratio 1.7 09/05/17 23:39: WBC 10.4, RBC 4.74, Hgb 14.5, Hct 43.2, MCV 91.1 D, MCH 30.6, MCHC 33.6, RDW 13.7, Plt Count 275, MPV 10.4, Gran % 93.1 H, Lymph % (Auto) 4.7 L, Jackson % (Auto) 2.1, Eos % (Auto) 0.0 L, Baso % (Auto) 0.1, Gran # 9.72 H, Lymph # 0.5 L, Jackson # 0.2, Eos # 0.0, Baso # 0.01, Neutrophils % (Manual) 93 H, Band Neutrophils % 2, Lymphocytes % (Manual) 4 L, Monocytes % (Manual) 1, Platelet Evaluation Normal - RAD Interpretation Narrative RAD Interpretations (Text): CT head without contrast: right posterior parietal extra-axial collection/gas external to dural flap, 2.3 cm. local mass effect may represent postoperative seroma v abscess. Right medial parietal lobe hypodensity measuring 3.2 cm. (Renae Minor) Radiology Orders: 09/05/17 23:18 HEAD W/O CONTRAST [CT] Stat 09/06/17 00:38 CHEST PORTABLE [RAD] Stat - EKG Interpretation EKG Interpretation (Text): 09/06/17 00:58 NSR @94bpm (Renae Minor) - Medication Orders Current Medication Orders: Discontinued Medications Sodium Chloride (Sodium Chloride 0.9%) 1,000 mls @ 100 mls/hr IV .Q10H PAYTON Last Admin: 09/06/17 01:34 Dose: 100 mls/hr eMAR Start Stop Document 09/06/17 01:34 AD (Rec: 09/06/17 01:34 AD [id number]) Intravenous Solution Start Date 09/06/17 Start Time 01:34 <Renae Minor - Last Filed: 09/06/17 02:21> - PA / CARDIAC EXERCISE SPECIALIST / Resident Statement SELAM has reviewed & agrees with the documentation as recorded. / has examined the patient and agrees with the treatment plan. - Scribe Statement The provider has reviewed the documentation as recorded by the Scribe <Todd Molina DO - Last Filed: 09/06/17 04:23> - Scribe Statement Clarisa Jean. All medical record entries made by the Scribe were at my direction and personally dictated by me. I have reviewed the chart and agree that the record accurately reflects my personal performance of the history, physical exam, medical decision making, and the department course for this patient. I have also personally directed, reviewed, and agree with the discharge instructions and disposition. (Todd Molina DO) Disposition/Present on Arrival - Present on Arrival Any Indicators Present on Arrival: No History of DVT/PE: No History of Uncontrolled Diabetes: No Urinary Catheter: No History of Decub. Ulcer: No History Surgical Site Infection Following: None - Disposition Have Diagnosis and Disposition been Completed?: Yes <Renae Minor - Last Filed: 09/06/17 02:21> - Disposition Disposition Time: 02:20 <Todd Molina DO - Last Filed: 09/06/17 04:23> - Disposition Diagnosis: Mass, brain Disposition: Transfer [facility] Condition: FAIR Referrals: [facility] Bakari Reina, [Primary Care Provider] - Follow up with primary Forms: [facility] (French)
[2017-09-05 23:55] LABS: MEAN CELL VOLUME 91.1 fl (80.0-105.0)
[2017-09-06 00:06] LABS: ALB/GLOB RATIO 1.7 (1.1-1.8); ALBUMIN 4.7 g/dL (3.0-4.8); CALCIUM 10.1 mg/dL (8.4-10.5); GFR AFRICAN-AMERICAN > 60; GFR NON-AFRICAN AMERICAN > 60
[2017-09-06 00:23] LABS: TROPONIN I < 0.01 ng/mL
[2017-09-06 01:00] LABS: ALT/SGPT 34 U/L (7-56); AST/SGOT 36 U/L (17-59); BLOOD UREA NITROGEN 13 mg/dL (7-21)
[2017-09-06 01:05] LABS: BAND 2 % (0-2); LYMPHOCYTE 4 % (22.0-35.0); MONOCYTE 1 % (1.0-6.0); NEUTROPHIL 93 % (50.0-70.0); PLATELET ESTIMATE NORMAL (NORMAL)
[2017-09-06] MEDS ORDERED: Sodium Chloride 0.9% 1,000 ML IV SCH (01:15)
--- NOTE | 2017-09-06 01:23 | CT ---
EXAM: CT Head Without Intravenous Contrast CLINICAL HISTORY: 62 years old, male; Pain; Headache; Additional info: Lethargic, headache TECHNIQUE: Axial computed tomography images of the head/brain without intravenous contrast. All CT scans at this facility use one or more dose reduction techniques, viz.: automated exposure control; ma/kV adjustment per patient size (including targeted exams where dose is matched to indication; i.e. head); or iterative reconstruction technique. 364 images are submitted. Coronal and sagittal reformatted images were created and reviewed. COMPARISON: CT - HEAD W/O (CODE STROKE) 2017-07-10 02:13 FINDINGS: Brain: There is right posterior parietal extra-axial collection external to the dural flap or with gas measuring 2.3 cm and local mass effect representing postoperative seroma versus abscess. There is right medial parietal lobe hypodensity measuring 3.2 cm extending to this collection the possibility of cerebral edema due to to infection or devascularization versus recurrence of the neoplastic process cannot be excluded. There is portion of left more than right temporal lobe are excluded from the examination. Cerebral and cerebellar volume loss. Patchy hypodensity is seen in the periventricular and subcortical white matter. There is interval improvement of the vasogenic edema seen in the right parietal occipital region. No hemorrhage. Ventricles: Unremarkable. No ventriculomegaly. Bones/joints: There is right parietal craniectomy with osseous hardware. No acute fracture. Soft tissues: Unremarkable. Sinuses: Unremarkable. No acute sinusitis. Mastoid air cells: Unremarkable. No mastoid effusion. IMPRESSION: 1. There is right posterior parietal extra-axial collection external to the dural flap or with gas measuring 2.3 cm and local mass effect representing postoperative seroma versus abscess. 2. There is right medial parietal lobe hypodensity measuring 3.2 cm extending to this collection the possibility of cerebral edema due to to infection or devascularization versus recurrence of the neoplastic process cannot be excluded. Correlation with clinical neurosurgical postoperative expectation evaluation and further workup or followup as recommended by patient's clinical data.
[2017-09-06 01:44] LABS: URINE BILIRUBIN NEGATIVE (NEGATIVE); URINE BLOOD NEGATIVE (NEGATIVE); URINE GLUCOSE (UA) NEGATIVE (NEGATIVE); URINE LEUKOCYTE ESTERASE NEGATIVE Leu/uL (NEGATIVE); URINE NITRATE NEGATIVE (NEGATIVE); URINE PROTEIN NEGATIVE mg/dL (<30 mg/dL); URINE UROBILINOGEN 0.2 E.U./dL (<1 E.U./dL)
[2017-09-06 02:00] LABS: BARBITURATES, UR NEGATIVE (NEGATIVE); BENZODIAZEPINES, UR NEGATIVE (NEGATIVE); OPIATES, UR NEGATIVE (NEGATIVE); PHENCYCLIDINE, UR NEGATIVE (NEGATIVE)
[2017-09-06 02:11] LABS: URINE APPEARANCE CLEAR (CLEAR); URINE COLOR YELLOW (YELLOW)
[2017-09-06 02:39] VITALS: O2SAT 100
[2017-09-06 03:11] VITALS: BP 128/82; PULSE 116; TEMP 98.7
--- NOTE | 2017-09-06 09:23 | RAD ---
HISTORY: r/o infiltrate COMPARISON: 07/10/2017. FINDINGS: LUNGS: There are low lung volumes which Low lung volumes may be related to poor inspiratory effort. No focal consolidation. PLEURA: No significant pleural effusion identified, no pneumothorax apparent. CARDIOVASCULAR: Normal. OSSEOUS STRUCTURES: No significant abnormalities. VISUALIZED UPPER ABDOMEN: Normal. OTHER FINDINGS: None. IMPRESSION: No active pulmonary disease.
--- NOTE | 2017-09-07 16:12 | CARD ---
APPROVED REPORT EKG Measurement Heart [id number] <Conclusion> Normal sinus rhythm Normal ECG
== END 2017-09-06 03:15 | disposition short-term general hospital (02) ==
LOC: ED 22:26
DX: C71.9 Malignant neoplasm of brain, unspecified (principal); E11.9 Type 2 diabetes mellitus without complications; R26.2 Difficulty in walking, not elsewhere classified; Z79.01 Long term (current) use of anticoagulants
CPT/HCPCS: 70450; 71045; 80053; 80320; 80324; 80345; 80346; 80349; 80353; 80358; 80361; 81003; 82550; 83615; 83992; 84484; 85025; 87086; 93005; 99285; J7040